=== PATIENT | male | born 1945 | race African-American/Black ===

== ENCOUNTER 2019-06-03 05:52 | Inpatient (IN) | payer OTHER ==
[2019-06-03] MEDS ORDERED: niCARdipine 20MG In NaCl 20 MG/200 ML BAG ONE (06:10)
[2019-06-03 06:24] LABS: #Eosinphils 0.2 thou/uL (0.0-0.7); #Monocytes 0.6 thou/uL (0.11-0.59); %Basophils 0.4 % (0.0-1.0); %Eosinophils 4.3 % (0.0-10.0); %Lymphocytes 41.3 % (21.0-51.0); %Monocytes 11.8 % (0.0-10.0); %Neutrophils 42.2 % (42.0-75.0); Mean Corpuscular HGB CONC 34.1 g/dL (32.0-36.0); Mean Corpuscular Hemoglobin 32.7 pg (27.0-31.0); Mean Corpuscular Volume 95.9 fL (78.0-98.0); Mean Platelet Volume 7.7 fL (7.4-10.4); Platelet Count 154 thou/uL (130-400); RBC Distribution Width 12.2 % (11.5-14.5); Red Blood Cell (RBC) Count 3.98 mill/uL (4.70-6.10); White Blood Cell (WBC) Count 4.7 thou/uL (4.8-10.8)
[2019-06-03 06:30] LABS: PTT 23.4 SEC (22.9-36.1); Prothrombin Time 12.7 SEC (12.0-14.7)
[2019-06-03 06:39] LABS: ALT (SGPT) 42 U/L (8-55); AST (SGOT) 27 U/L (5-34); Acetaminophen Less than 6.0 mcg/mL (10.0-30.0); Albumin 3.2 g/dL (3.4-4.8); Alcohol Less than 10 mg/dL (Less than 10); Alkaline Phosphatase 72 U/L (40-110); Anion Gap 12 mmol/L (10-20); BUN (Urea Nitrogen) 32 mg/dL (8.4-25.7); Bilirubin, Total 0.4 mg/dL (0.2-1.2); Calc. Creatinine Clearance 0 mL/min (70-130); Calcium 8.7 mg/dL (7.8-10.44); Carbon Dioxide 25 mmol/L (23-31); Chloride 104 mmol/L (98-107); Estimated GFR-MDRD 54; Globulin 3.3 g/dL (2.4-3.5); Glucose 271 mg/dL (83-110); Protein, Total 6.5 g/dL (5.8-8.1); Salicylate Less than 8.0 mg/dL (15.0-30.0); Sodium 137 mmol/L (136-145)
[2019-06-03] MEDS ORDERED: Morphine 2 MG/ML SYRINGE ONE (06:48)
[2019-06-03] MEDS ORDERED: Aspirin Chewable 81 MG TAB ONE ×2 (07:09)
[2019-06-03 07:39] LABS: Bilirubin Negative (Negative); Blood, Urine Negative (Negative); Clarity Clear (Clear); Glucose, Urine (Dipstick) 500 mg/dL (Negative); Leukocyte Negative Leu/uL (Negative); Nitrite Negative (Negative); Protein, Urine (Dipstick) Negative (Neg-Trace); Urobilinogen Normal mg/dL (Less than 2)
--- NOTE | 2019-06-03 07:39 | CT ---
PRELIMINARY REPORT/[facility]/EMERGENCY AFTER HOURS PROCEDURE Addendum created by Chico Langley MD on 06/03/2019 6:30 AM Central Time ([place] & [place]) The findings were verbally communicated via telephone conference with VAZQUEZ GRAHAM at 6:20 AM CDT on 06/03/2019. Initial Report created on 06/03/2019 6:13 AM Central Time ([place] & [place]) PROCEDURE INFORMATION: Exam: CT Head Without Contrast Exam date and time: 06/03/2019 5:56 AM Clinical history: 73 years old, male; Weakness, extremity and weakness, facial; Patient HX: Slurred speech, left sided facial droop, left sided extremity weakness TECHNIQUE: Imaging protocol: Computed tomography of the head without contrast. Other technique: STROKE PROTOCOL was implemented. COMPARISON: No relevant prior studies available. FINDINGS: Brain: Mild periventricular and deep white matter hypodensities compatible with chronic microvascular ischemic change. No hemorrhage. Ventricles: Unremarkable. Bones/joints: No acute fracture. Sinuses: Unremarkable. Mastoid air cells: Unremarkable. Soft tissues: Unremarkable. IMPRESSION: No evidence of acute intracranial abnormality. ASSESSMENT: ASPECTS ([place] Stroke Program Early CT Score) is 10. Thank you for allowing us to participate in the care of your patient. Dictated and Authenticated by: Chico Langley MD 06/03/2019 6:13 AM Central Time ([place] & [place]) FINAL REPORT CT BRAIN WITHOUT CONTRAST: I agree with the preliminary report given by Dr. Chico Langley of [facility]. Transcribed Date/Time: 06/03/2019 7:43 AM
--- NOTE | 2019-06-03 07:40 | RAD ---
EXAM: Single view of the chest HISTORY: Strokelike symptoms COMPARISON: None FINDINGS: Single view of the chest shows a normal sized cardiomediastinal silhouette. There is no ronnie dence of consolidation, mass, or pleural effusion. The bones are unremarkable. IMPRESSION: No evidence of acute cardiopulmonary disease
[2019-06-03 07:49] LABS: Amphetamine Not Detected (NotDetected); Cocaine Metabolite Screen Not Detected (NotDetected); Medtox Reader # READER 4; Methamphetamine Not Detected (NotDetected); Opiate Screen Detected (NotDetected); Phencyclidine (PCP) Not Detected (NotDetected); THC/Cannabinoid Screen Not Detected (NotDetected)
[2019-06-03 07:50] LABS: Barbiturates Screen Not Detected (NotDetected); Benzodiazepine Screen Not Detected (NotDetected); Medtox Control Line Valid? VALID (VALID); Methadone Not Detected (NotDetected); Oxycodone Screen Not Detected (NotDetected); Tricyclic Screen Not Detected (NotDetected)
--- NOTE | 2019-06-03 07:50 | CT ---
PRELIMINARY REPORT/[facility]/EMERGENCY AFTER HOURS PROCEDURE PROCEDURE INFORMATION: Exam: CT Angiography Chest With Contrast Exam date and time: 06/03/2019 6:26 AM Clinical history: 73 years old, male; Other: Severe chest pain; Shortness of breath; Additional info: Additional history obtained from EMS, 73 y/o m presents to ED via EMS transport from the [facility] unit for stroke-like symptoms. PT was last seen [facility] at 0415 today, with unit staff reporting onset now of slurred speech, facial droop, L sided weakness. PT BP is 237/118 and abn cxr. PT recieved a dose of contrast prior to scan for a cta br and neck stroke protocol. PT is being admitted and is given fluids. TECHNIQUE: Imaging protocol: Computed tomographic angiography of the chest with intravenous contrast. 3D rendering: MIP reconstructed images were created and reviewed. Contrast material: ISVOUE 370; Contrast volume: 95 ml; Contrast route: IV; COMPARISON: No relevant prior studies available. FINDINGS: Pulmonary arteries: Some motion and limited opacification. No pulmonary embolus identified in the main or lobar branches or proximal segmental branches which can be evaluated. Aorta: No aortic aneurysm. No aortic dissection. Lungs: Mild bibasal subsegmental atelectasis and dependent groundglass attenuation. No consolidation. No mass. Pleural space: No pneumothorax. No pleural effusion. Heart: Coronary calcifications. No significant pericardial effusion. Lymph nodes: Unremarkable. No enlarged lymph nodes. Bones/joints: Unremarkable. No acute fracture. Soft tissues: Unremarkable. IMPRESSION: 1. No acute vascular findings. 2. Mild bibasal subsegmental atelectasis and dependent groundglass attenuation compatible with passive atelectasis. PROCEDURE INFORMATION: Exam: CT Angiography Abdomen With Contrast Exam date and time: 06/03/2019 6:26 AM Clinical history: 73 years old, male; Other: Severe chest pain; Shortness of breath; Additional info: Additional history obtained from EMS, 73 y/o m presents to ED via EMS transport from the [facility] unit for stroke-like symptoms. PT was last seen [facility] at 0415 today, with unit staff reporting onset now of slurred speech, facial droop, L sided weakness. PT BP is 237/118 and abn cxr. PT recieved a dose of contrast prior to scan for a cta br and neck stroke protocol. PT is being admitted and is given fluids. TECHNIQUE: Imaging protocol: Computed tomographic angiography images of the abdomen with intravenous contrast material. 3D rendering: MIP reconstructed images were created and reviewed. Contrast material: ISVOUE 370; Contrast volume: 95 ml; Contrast route: IV; COMPARISON: No relevant prior studies available. FINDINGS: VASCULATURE: Aorta: No aortic aneurysm. No aortic dissection. Celiac trunk and mesenteric arteries: Atherosclerotic plaque along the mid SMA proximal POPPY with mild stenosis. Renal arteries: No occlusion or significant stenosis. ABDOMEN: Liver: Normal. No mass. Gallbladder and bile ducts: Normal. No calcified stones. No ductal dilation. Pancreas: Normal. No ductal dilation. Spleen: Normal. No splenomegaly. Adrenals: Normal. No mass. Kidneys and ureters: 6.3 cm left renal cyst and couple small low attenuation renal lesions bilaterall y. Excreted contrast in the kidneys and ureters. Symmetric nephrograms. No hydronephrosis. Stomach and bowel: Mild apparent gastric wall thickening versus partial distention. Otherwise unremarkable. No obstruction. Intraperitoneal space: Unremarkable. No free air. No significant fluid collection. Bones/joints: Unremarkable. No acute fracture. No dislocation. Soft tissues: Unremarkable. Lymph nodes: Subcentimeter fabián hepatic lymph nodes. IMPRESSION: 1. No definite acute findings. 2. Mild apparent gastric wall thickening versus partial distention. Thank you for allowing us to participate in the care of your patient. Dictated and Authenticated by: Chico Langley MD 06/03/2019 6:59 AM Central Time ([place] & [place]) FINAL REPORT CTA CHEST WITH IV CONTRAST AND 3D POSTPROCESSING CTA ABDOMEN WITH IV CONTRAST AND 3D POSTPROCESSING: I agree with the preliminary report given by [facility]. Transcribed Date/Time: 06/03/2019 7:54 AM
--- NOTE | 2019-06-03 07:51 | PDOC.FPRHP ---
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 Neurological deficits began yesterday afternoon/evening. He noticed mostly dysarthria yesterday. He decided to sleep it off but woke this morning without alleviation of symptoms and L sided weakness. He state at this time others became concerned with his condition so he came to the emergency department. He states he has never had any symptoms like this. While in the emergency department he began experiencing sternal, sharp chest pain that was non- radiating. His chest pain was not alleviated while he was at rest. Of note he did have a fall yesterday. He went to [facility] who discharged him home. We do not have records. He states symptoms became worse after discharge. In the ED he was noted to have BP's 240's/130's and started on a cardizem drip. He was noted to have a NIH of 18 but this was due to his inability to perform testing as he is blind per ED. Trop neg x 1. CT Head negative, CT aortic dissection negative, CTA Head/Neck revealed mild R proximal ICA stenosis. - Allergies/Adverse Reactions Allergies Allergy/AdvReac Type Severity Reaction Status Date / Time Penicillins Allergy Verified 06/03/19 09:21 - Home Medications Medication Instructions Recorded Confirmed Type Amlodipine [Norvasc] 10 mg PO DAILY 06/03/19 06/03/19 History Aspirin [Ecotrin Low Strength] 81 mg PO DAILY 06/03/19 06/03/19 History Atorvastatin Calcium 20 mg PO HS 06/03/19 06/03/19 History Hydrochlorothiazide 25 mg PO DAILY 06/03/19 06/03/19 History Lisinopril 20 mg PO DAILY 06/03/19 06/03/19 History Minoxidil 7.5 mg PO HS 06/03/19 06/03/19 History Timolol Maleate [Timolol Maleate 1 drop EA EYE BID 06/03/19 06/03/19 History 0.5% Ophth SolN] metFORMIN HCl [Metformin HCl] 1 g PO BID 06/03/19 06/03/19 History - History PMHx: HTN, DMII, Hep C, CAD, Visual Impairment PSHx: cath w/ stents 2013 FHx: Mother with CAD Social: Snf, denies current smoking, alcohol, drugs - Review of Systems General: denies: fever/chills, weight/appetite/sleep changes Eyes: denies: eye pain, vision changes ENT: denies: nasal congestion, rhinorrhea Respiratory: denies: cough, congestion Cardiovascular: reports: chest pain. denies: palpitation, edema Gastrointestinal: denies: nausea, vomiting, diarrhea, constipation Skin: denies: rashes, lesions Musculoskeletal: denies: pain, tenderness Neurological: reports: numbness, weakness. denies: syncope, seizure - Vital signs BP: [212/95] HR: [95] RR: [20] Tmax: [98.8] Pox: [96]% on [RA] Wt: [92.6 kg] - Physical Exam Constitutional: NAD, awake, alert and oriented HEENT: EOMI -HEENT: Blind Neck: FROM, trachea midline Heart: RRR, normal S1/S2, pulses present Lungs: CTAB, no respiratory distress, good air movement, no wheezing -Neurological: CN III-XII intact except VII - lower facial droop, II not intact, 4-/5 strength left extremities, 4+/5 strength R extremities, tingling sensation in L extremities but sensation intact Heme/Lymphatic: no purpura, no petechia Psychiatric: good judgment and insight FMR H&P: Results - Labs Result Diagrams: 06/03/19 06:15 06/03/19 06:15 Lab results: WBC 4.7 thou/uL (4.8-10.8) L 06/03/19 06:15 Hgb 13.0 g/dL (14.0-18.0) L 06/03/19 06:15 Hct 38.1 % (42.0-52.0) L 06/03/19 06:15 MCV 95.9 fL (78.0-98.0) 06/03/19 06:15 Plt Count 154 thou/uL (130-400) 06/03/19 06:15 Neutrophils % 42.2 % (42.0-75.0) 06/03/19 06:15 Sodium 137 mmol/L (136-145) 06/03/19 06:15 Potassium 4.0 mmol/L (3.5-5.1) 06/03/19 06:15 Chloride 104 mmol/L (98-107) 06/03/19 06:15 Carbon Dioxide 25 mmol/L (23-31) 06/03/19 06:15 BUN 32 mg/dL (8.4-25.7) H 06/03/19 06:15 Creatinine 1.53 mg/dL (0.7-1.3) H 06/03/19 06:15 Glucose 271 mg/dL (83-110) H 06/03/19 06:15 Lactic Acid 2.9 mmol/L (0.5-2.2) H 06/03/19 06:14 Calcium 8.7 mg/dL (7.8-10.44) 06/03/19 06:15 Total Bilirubin 0.4 mg/dL (0.2-1.2) 06/03/19 06:15 AST 27 U/L (5-34) 06/03/19 06:15 ALT 42 U/L (8-55) 06/03/19 06:15 Alkaline Phosphatase 72 U/L (40-110) 06/03/19 06:15 Creatine Kinase 142 U/L (30-200) 06/03/19 06:15 Serum Total Protein 6.5 g/dL (5.8-8.1) 06/03/19 06:15 Albumin 3.2 g/dL (3.4-4.8) L 06/03/19 06:15 - EKG Interpretation EKG: Initial EKG reveal T Wave Inversion in the Lateral Leads Second EKG revealed resolution of T Wave Inversions FMR H&P: A/P - Problem List (1) Stroke Current Visit: Yes Status: Acute Code(s): I63.9 - CEREBRAL INFARCTION, UNSPECIFIED (2) Weakness Current Visit: Yes Status: Acute Code(s): R53.1 - WEAKNESS (3) Hypertension Current Visit: Yes Status: Acute Code(s): I10 - ESSENTIAL (PRIMARY) HYPERTENSION (4) Diabetes Current Visit: Yes Status: Acute Code(s): E11.9 - TYPE 2 DIABETES MELLITUS WITHOUT COMPLICATIONS (5) CAD (coronary artery disease) Current Visit: Yes Status: Acute Code(s): I25.10 - ATHSCL HEART DISEASE OF [place] CORONARY ARTERY W/O ANG PCTRS - Plan Mr Cervantes is a 73 yo male who presents with L sided extremitiy weakness, R sided facial droop, and chest pain. # L sided weakness # R sided facial droop New onset. Out of TPA window. CT head negative. CTA head/neck revealed mild R ICA stenosis. CT Dissection negative. Trop x 1 neg. NIH 6. 4-/5 strength on L , 4+/5 on right. - MRI pending - trend trops - start asp - start atorvastatin - Permissive HTN - Start metoprolol; labetolol for BP > 220/110 - Consult PT/OT/Speech - Echo pending # Atypical Chest Pain MSK vs Stable Angina vs Unstable Angina Initial EKG revealed T wave inversions in lateral leads which resolved on secondary Pain not remitting with rest. Sharp, sternal in nature, no radiation - Trend tops - Stress test tomorrow - Consult cards if trops elevate, start heparin # DM - sliding scale # HTN - permissive htn, start metoprolol now # Hx CAD - as above # Inmate - will need follow up in [place] [facility] Fluids: none Diet: Heart Healthy, NPO midnight VTE prophylaxis: lovenox Code: Full Dispo: Pt will likely need > 2 midnight stays for new onset deficits, chest pain. FMR H&P: Upper Level - Plan Date/Time: 06/03/19 0750 PCP: JE[facility] HPI: This is a 73 yo gentleman coming in from [facility] with chief complaint of stroke like symptoms as well as chest pain. PMH includes CAD, Hep C, DMII, HTN. He went to an outside ED yesterday after a fall and was sent home stating that his exam was benign. He states last night when he was going to bed he started to notice weakness affecting his face and thought if he went to sleep it would resolve. When he awoke at 0400 he talked to a guard who noticed facial droop and brought him in. The patient also states that he has chest pain in the center of his chest which does not radiate and is not affected by activity. He denies fevers, chills, sweats, N/V/D. On arrival to the ED his blood pressures was in the 240s/120s and he was started on a cardene drip, this did not affect his chest pain. The patients neuro exam was variable during his ED stay, nurses state at time he would not raise up his arms and then other times he would use them fine to use the urinal or roll on the bed. PHYSICAL EXAMINATION: General: NAD, alert and oriented x3 HEENT: PERRLA, EOMI, normal sclera, oropharynx without erythema or exudate Neck: Supple. Full ROM. Heart/Cardiovascular System: RRR, Cap refill < 3 seconds, no rub, no murmur, tender to palpation of the chest Lungs/Respiratory System: clear to auscultation bilaterally. No increased work of breathing. Room air. Abdomen/Gastro-Intestinal System: no abdominal tenderness, normal bowel sounds, no masses, no organomegaly Extremities: Warm extremities. No cyanosis or edema. Neuro: Right sided lower facial droop noted on smile, no dysarthria, bilateral upper extremities drift to the bed but can be raised up, no drift noted on legs , 4/5 weakness throughout during exam, nurses state was stronger at times, chronic visual impairment Psychiatry: Awake, Alert and cooperative with exam Skin: No lesions, rashes, or ulcers Musculoskeletal: Full ROM A/P: # Left acute CVA - Confirmed on MRI - CTA head/neck show mild right ICA stenosis but no acute finding - NIH: 6 - Asa, statin, echo - Stroke team consulted- PT/OT/Rehab - Permissive HTN x24 hours - Neurology consulted, appreciate recs # Chest pain likely 2/2 costochondritis - T inv noted on EKG, trop negative x1, will trend # HTN - Restart home meds tomorrow # DMII - Sliding scale Fluids: tko Code status: full PPx: scd, lovenox Dispo: inpt
--- NOTE | 2019-06-03 08:00 | CT ---
PRELIMINARY REPORT/[facility]/EMERGENCY AFTER HOURS PROCEDURE: Addendum created by Chico Langley MD on 06/03/2019 6:30 AM Central Time ([place] & [place]) The findings we re verbally communicated via telephone conference with VAZQUEZ GRAHAM at 6:20 AM CDT on 06/03/2019. Initial Report created on 06/03/2019 6:29 AM Central Time ([place] & [place]) PROCEDURE INFORMATION: Exam: CT Angiography Head With Contrast Exam date and time: 06/03/2019 5:59 AM Clinical history: 73 years old, male; Patient HX: Slurred speech, left sided facial droop, left sided extremity weakness TECHNIQUE: Imaging protocol: Computed tomography angiography of the head with intravenous contrast. 3D rendering: MIP reconstructed images were created and reviewed. COMPARISON: No relevant prior studies available. FINDINGS: Right internal carotid artery: Unremarkable. Intracranial segment is patent with no significant steno sis. No aneurysm. Right anterior cerebral artery: Unremarkable. No occlusion or significant stenosis. No aneurysm. Right middle cerebral artery: Unremarkable. No occlusion or significant stenosis. No aneurysm. Right posterior cerebral artery: Unremarkable. No occlusion or significant stenosis. No aneurysm. Right vertebral artery: Unremarkable. No occlusion or significant stenosis. No aneurysm. Left internal carotid artery: Unremarkable. Intracranial segment is patent with no significant stenos is. No aneurysm. Left anterior cerebral artery: Unremarkable. No occlusion or significant stenosis. No aneurysm. Left middle cerebral artery: Unremarkable. No occlusion or significant stenosis. No aneurysm. Left posterior cerebral artery: Unremarkable. No occlusion or significant stenosis. No aneurysm. Left vertebral artery: Unremarkable. No occlusion or significant stenosis. No aneurysm. Basilar artery: Unremarkable. No occlusion or significant stenosis. No aneurysm. IMPRESSION: No acute findings. PROCEDURE INFORMATION: Exam: CT Angiography Neck With Contrast Exam date and time: 06/03/2019 5:59 AM Clinical history: 73 years old, male; Patient HX: Slurred speech, left sided facial droop, left sided extremity weakness TECHNIQUE: Imaging protocol: Computed tomography angiography of the neck with intravenous contrast. COMPARISON: No relevant prior studies available. FINDINGS: VASCULATURE: Right common carotid artery: No significant stenosis. No dissection or occlusion. Right internal carotid artery: Mild proximal right ICA atherosclerotic plaque with mild significant stenosis. Right external carotid artery: No occlusion or significant stenosis. Right vertebral artery: No significant stenosis. No dissection or occlusion. Left common carotid artery: No significant stenosis. No dissection or occlusion. Left internal carotid artery: Mildly angulated proximal left ICA course. Mild left carotid bulb/proxi mal ICA atherosclerotic plaque with mild to moderate stenosis. Left external carotid artery: No occlusion or significant stenosis. Left vertebral artery: No significant stenosis. No dissection or occlusion. NECK: Bones/joints: No acute fracture. Soft tissues: Unremarkable. IMPRESSION: No acute findings. COMMENT: Reference per NASCET criteria for degree of stenosis: Mild: less than 50% stenosis. Moderate: 50-69% stenosis. Severe: 70-94% stenosis. Near occlusion: 95-99% stenosis. Thank you for allowing us to participate in the care of your patient. Dictated and Authenticated by: Chico Langley MD 06/03/2019 6:29 AM Central Time ([place] & [place]) FINAL REPORT CTA NECK AND CTA HEAD: The intracranial cerebral arteries show atherosclerotic changes in the cavernous ICAs. No evidence of proximal stenosis or occlusion. The extracranial carotid arteries appear patent without evidence of significant stenosis. I am in agreement with the preliminary report issued by [facility]. POS: OFF
[2019-06-03] MEDS ORDERED: Labetalol HCl 100 MG/20 ML VIAL SLOW IVP PRN (09:01)
[2019-06-03] MEDS ORDERED: Acetaminophen 325 MG TAB PO PRN (09:01)
[2019-06-03] MEDS ORDERED: Amlodipine 10 MG TAB PO SCH (09:01)
--- NOTE | 2019-06-03 09:57 | MRI ---
MRI BRAIN WITHOUT CONTRAST: HISTORY: Slurred speech, left-sided facial droop, left-sided weakness CORRELATION: CT scan from 06/03/2019. FINDINGS: There is a small focus of restricted diffusion in the left thalamus. A couple of small foci of restri cted diffusion are also seen in the left centrum semiovale. There are multiple foci of T2 prolongation in the periventricular white matter, consistent with chrome plater rohan small vessel ischemic disease. The ventricular size is appropriate and the basilar cisterns are patent. No evidence of transcortical infarct, hemorrhage, midline shift or abnormal extra-axial fluid collect ions is seen. The visualized paranasal sinuses and mastoid air cells are well-aerated. IMPRESSION: Acute lacunar infarctions in the left cerebral hemisphere (thalamus and centrum semiovale ).
[2019-06-03 10:37] LABS: Lactic Acid 2.6 mmol/L (0.5-2.2)
[2019-06-03] MEDS ORDERED: Ibuprofen 600 MG TAB PO PRN (10:53)
[2019-06-03] MEDS ORDERED: Iopamidol 370 76% 100 ML VIAL ONE ×2 (11:29)
[2019-06-03 12:28] LABS: Troponin I 0.019 ng/mL (< 0.028)
--- NOTE | 2019-06-03 12:31 | HP ---
I have examined the patient. I have discussed the case with Dr. Wes Charles and agree with his assessment and plan. HISTORY OF PRESENT ILLNESS: Briefly, Mr. Cervantes is a 73-year-old black male inmate, who presented initially yesterday to [facility] with symptoms suggestive of possible TIA/stroke. He had a negative CT at that institution and was returned to the [facility]. He continued to complain of some slurred speech and left-sided weakness and came into our ER earlier this morning for further evaluation. When I examined the patient, he was awake, alert, with stable vital signs. He complained of slurred speech and left-sided weakness. PHYSICAL EXAMINATION: GENERAL: As stated above, he is awake and alert. VITAL SIGNS: His blood pressure was 220/110. His pulse rate was 86 and regular, respirations 12. Afebrile. EAR, NOSE, AND THROAT: No erythema or exudate. He did appear to have possibly a left-sided facial droop and slurred his speech somewhat. He says this was a distinct change for him from day before yesterday. NECK: Supple. I heard no bruits. CARDIAC: Heart rhythm was regular, S4 gallop. No murmur or rub noted. LUNGS: Clear, but diminished. No rales or wheezes. No respiratory distress. ABDOMEN: Flat, soft. No guarding, rebound, or rigidity. EXTREMITIES: No edema. NEUROLOGICAL: He did appear to have some weakness in his left lower extremity compared to the right. His left arm strength compared favorably with his right arm strength. He was muffling or slurring his speech. LABORATORY DATA: His CBC shows a white count of 4700, hemoglobin was 13, hematocrit 38.1. Chemistries; sodium was 137, potassium was 4.0, chloride was 101, bicarb was 25, BUN was 32, creatinine was 1.53, and his glucose was elevated at 271. Lactic acid was slightly elevated at 3.9. ASSESSMENT: Transient ischemic attack versus stroke versus malingering. PLAN: We will allow permissive hypertension. He has already been scheduled for a CTA of the head and neck, which I am told are normal. We will also get an MRI and echo to complete his workup. We reinstituted treatment with atorvastatin and blood pressure control. We will later add aspirin if his MRI shows no evidence of bleed. We will need to consult PT, OT possibly as well. Job ID: [id number]
[2019-06-03 14:13] VITALS: BMI 29.9
[2019-06-03] MEDS: metFORMIN 500 MG TAB PO SCH (16:06)
[2019-06-03] MEDS ORDERED: Metoprolol Tartrate 25 MG TAB PO SCH (21:00)
[2019-06-03] MEDS ORDERED: METFORMIN HCL PO SCH (21:00)
[2019-06-03] MEDS: Timolol 0.5% Ophth Soln 5 ml Bottle EA EYE SCH (21:15)
[2019-06-03] MEDS: Atorvastatin Calcium 40 MG TAB PO SCH (21:15)
[2019-06-03] MEDS ORDERED: Dextrose 5% in Water 1,000 ML IV PRN (22:30)
[2019-06-03] MEDS ORDERED: Dextrose 50% Abboject 50 ML SYRINGE IVP PRN (22:30)
--- NOTE | 2019-06-03 23:16 | CON ---
DATE OF CONSULTATION: 06/03/2019 CONSULTING PHYSICIAN: Hospitalist Service. IMPRESSION: 1. Left thalamic stroke. 2. Hypertension. 3. Diabetes. 4. Aspirin failure. PLAN: 1. Add Plavix 75 mg per day. 2. Transfer to a rehab facility. HISTORY OF PRESENT ILLNESS: Mr. Cervantes is a 73-year-old man who is currently an [facility]. He developed symptoms of right-sided weakness and was brought to the hospital. Initial CT of the brain was unremarkable. Followup MRI showed a left thalamic infarct that was acute. His CT angiogram does not show any large vessel stenosis. He had an echocardiogram performed, but the results are pending. He has not been out of the bed yet. PAST MEDICAL HISTORY: As listed above. ALLERGIES: PENICILLIN. SOCIAL HISTORY: He is currently an inmate. No alcohol use. No illicit drug use. MEDICATIONS: Reviewed. REVIEW OF SYSTEMS: Ten-system review of systems is otherwise negative. PHYSICAL EXAMINATION: VITAL SIGNS: Blood pressure 157/75, pulse 84, respirations 16, and temperature 98.9. HEENT: Pupils are equal. Conjunctivae are clear. Oropharynx is clear. NECK: Supple. No lymphadenopathy. EXTREMITIES: No cyanosis or edema. NEUROLOGIC: He is awake and cooperative. He appears to have some facial droop on the right. He made very limited efforts to raise his arm on the right side. He reports some diminished sensation to touch in the right arm, but not in the face. He could elevate the right leg against gravity. No abnormal movements are seen. DIAGNOSTIC DATA: EKG shows sinus rhythm. LABORATORY DATA: Laboratory studies were reviewed. SUMMARY: This is a 73-year-old gentleman with moderately extensive small vessel disease with a secondary lacunar infarct in the thalamus. His prognosis is good for functional recovery. He seems to be embellishing his exam as well. I agree with his current treatment plan, but would add Plavix since he was previously taking aspirin. Job ID: [id number]
[2019-06-04 05:17] LABS: #Basophils 0.1 thou/uL (0.0-0.2); #Eosinphils 0.3 thou/uL (0.0-0.7); #Lymphocytes 2.4 thou/uL (1.20-3.40); #Monocytes 0.6 thou/uL (0.11-0.59); #Neutrophils 1.7 thou/uL (1.40-6.50); %Basophils 1.4 % (0.0-1.0); %Eosinophils 5.9 % (0.0-10.0); %Lymphocytes 47.8 % (21.0-51.0); %Monocytes 11.6 % (0.0-10.0); %Neutrophils 33.3 % (42.0-75.0); Hemoglobin 12.8 g/dL (14.0-18.0); Mean Corpuscular HGB CONC 34.4 g/dL (32.0-36.0); Mean Corpuscular Hemoglobin 32.7 pg (27.0-31.0); Mean Corpuscular Volume 95.2 fL (78.0-98.0); Mean Platelet Volume 8.3 fL (7.4-10.4); Platelet Count 166 thou/uL (130-400); RBC Distribution Width 12.2 % (11.5-14.5); Red Blood Cell (RBC) Count 3.91 mill/uL (4.70-6.10)
[2019-06-04 05:25] LABS: Anion Gap 9 mmol/L (10-20); BUN (Urea Nitrogen) 22 mg/dL (8.4-25.7); Calc. Creatinine Clearance 68 mL/min (70-130); Calcium 8.7 mg/dL (7.8-10.44); Carbon Dioxide 27 mmol/L (23-31); Cardiac Risk 4.2 (Less than 4.5); Chloride 107 mmol/L (98-107); Cholesterol 172 mg/dl (< 200 Desired); Estimated GFR-MDRD 67; Glucose 180 mg/dL (83-110); HDL Cholesterol 41 mg/dL (>60 Neg Risk); LDL Cholesterol, Calculated 112 mg/dL; Potassium 3.8 mmol/L (3.5-5.1); Sodium 139 mmol/L (136-145); Triglycerides 94 mg/dL (Less than 150)
--- NOTE | 2019-06-04 06:14 | PDOC.FM ---
- Subjective Subjective: Pt remains with same complaints as yesterday. He has generalized weakness. He remains with chest pain. Guards note he is able to move extremities with ease compared to effort on my exam. - Objective Vital Signs & Weight: Vital Signs (12 hours) Temp Pulse Resp BP BP Pulse Ox 06/04/19 04:00 97.9 F 77 18 169/81 H 93 L 06/03/19 23:22 98.1 F 77 18 156/71 H 96 06/03/19 21:15 88 153/71 H 06/03/19 20:00 92 L 06/03/19 19:41 98.4 F 88 18 153/71 H 92 L Weight Admit Weight 91.989 kg Weight 91.989 kg Result Diagrams: 06/04/19 04:41 06/04/19 04:41 Phys Exam - Physical Examination Constitutional: NAD Respiratory: no wheezing, no rales, no rhonchi, clear to auscultation bilateral Cardiovascular: RRR, no significant murmur Gastrointestinal: soft, non-tender, no distention Musculoskeletal: no edema, pulses present Neurological: moves all 4 limbs Right side facial droop, 4-/5 strength LLE, 4+/5 strength RLE Dx/Plan (1) Stroke Code(s): I63.9 - CEREBRAL INFARCTION, UNSPECIFIED Status: Acute (2) Weakness Code(s): R53.1 - WEAKNESS Status: Acute (3) Hypertension Code(s): I10 - ESSENTIAL (PRIMARY) HYPERTENSION Status: Acute (4) Diabetes Code(s): E11.9 - TYPE 2 DIABETES MELLITUS WITHOUT COMPLICATIONS Status: Acute (5) CAD (coronary artery disease) Code(s): I25.10 - ATHSCL HEART DISEASE OF [place] CORONARY ARTERY W/O ANG PCTRS Status: Acute - Plan Plan: Mr Cervantes is a 73 yo male who presents with L sided extremitiy weakness, R sided facial droop, and chest pain. # L sided weakness # R sided facial droop # Acute Stroke New onset. Out of TPA window. CT head negative. CTA head/neck revealed mild R ICA stenosis. CT Dissection negative. MRI revealed acute infarction. Trop x 1 neg. NIH 6. 4-/5 strength on L, 4+/5 on right. - start asp, clopidegril - start atorvastatin - Start metoprolol after stress test, lisinopril for cardiac and renal benefits ; continue other home bp meds, labetolol for BP > 220/110 - Consult PT/OT/Speech; appreciate rec's - Consult Neurology; appreciate rec's - Echo pending - Speech cleared reg diet. # Atypical Chest Pain MSK vs Stable Angina vs Unstable Angina Initial EKG revealed T wave inversions in lateral leads which resolved on secondary Pain not remitting with rest. Sharp, sternal in nature, no radiation. Trops negative. - Stress test today # DM - continued metformin, started lisinopril # HTN - metoprolol, lisinopril. Titrate lisinopril, metoprolol as much as kidneys and rate can handle to optimize control. - hold metoprolol this am for stress test. # Hx CAD - as above # Inmate - will need follow up in [facility] Fluids: none Diet: Heart Healthy, NPO midnight VTE prophylaxis: lovenox Code: Full Dispo: Pt will likely need > 2 midnight stays for new onset deficits, chest pain.
[2019-06-04] MEDS ORDERED: Lisinopril 10 MG TAB PO SCH (06:15)
[2019-06-04] MEDS ORDERED: Aspirin 81 mg Enteric Coated Tablet PO SCH (09:00)
[2019-06-04 09:04] LABS: Lactic Acid 2.2 mmol/L (0.5-2.2)
[2019-06-04] MEDS: metFORMIN 500 MG TAB PO SCH ×2 (09:36→17:21)
[2019-06-04] MEDS: Clopidogrel Bisulfate 75 MG TAB PO SCH (09:37)
[2019-06-04] MEDS: Timolol 0.5% Ophth Soln 5 ml Bottle EA EYE SCH ×2 (09:37→21:18)
--- NOTE | 2019-06-04 12:11 | PRG ---
DATE OF SERVICE: 06/04/2019 Mr. Cervantes has been seen by Dr. Patel, who agrees with our assessment and plan. He is already on aspirin and statin and Dr. Patel has suggested that we add Plavix. Given that Mr. Cervantes likely has significant ASCVD and given the fact that he had some ischemic changes on his initial admission EKG, we are proceeding with a stress Myoview. Further workup to depend on this. We have started OT and PT. We are gradually bringing his blood pressure under control. Job ID: [id number]
[2019-06-04] MEDS ORDERED: FLU VACC TS2019-20(65YR UP)/PF 180 MCG/0.5 ML SYRINGE IM ONE (16:00)
--- NOTE | 2019-06-04 17:14 | NM ---
NUCLEAR MEDICINE CARDIAC MYOCARDIAL PERFUSION SPECT EJECTION FRACTION STUDY WALL MOTION CINE: DATE: 06/04/2019 HISTORY: 73-year-old male with coronary artery disease, hypertension, and diabetes mellitus presents with acut e chest pain. TECHNIQUE: Number of days: 1 Rest study: Technetium 99m-sestamibi (Cardiolite) dose: 9.0 mCi Pharmacologic stress: Adenosine dose: 51.5 mg Stress study: Technetium 99m-sestamibi (Cardiolite) dose: 32.6 mCi FINDINGS: CARDIAC (MYOCARDIAL PERFUSION) SPECT There are no reversible myocardial perfusion defects. EJECTION FRACTION STUDY Left ventricular EF = 41 % WALL MOTION CINE No focal wall motion abnormality. IMPRESSION: 1. No evidence of reversible ischemia. 2. Decreased left ventricular ejection fraction of 41%.
[2019-06-04] MEDS: Insulin Regular 300 UNITS/3 ML VIAL SC PRN (17:22)
[2019-06-04] MEDS ORDERED: Amlodipine 10 MG TAB PO SCH (17:30)
[2019-06-04] MEDS ORDERED: Labetalol HCl 100 MG/20 ML VIAL SLOW IVP PRN (17:49)
[2019-06-04] MEDS ORDERED: ADENOSINE 60 MG/20 ML VIAL ONE (19:55)
[2019-06-04] MEDS: Atorvastatin Calcium 40 MG TAB PO SCH (21:18)
[2019-06-04] MEDS: Metoprolol Tartrate 25 MG TAB PO SCH (21:18)
[2019-06-04] MEDS ORDERED: Dextrose 5% in Water 1,000 ML IV PRN (22:47)
[2019-06-04] MEDS: HumaLOG 300 UNITS/3 ML VIAL SC PRN (23:08)
[2019-06-05 05:31] LABS: #Basophils 0.1 thou/uL (0.0-0.2); #Eosinphils 0.3 thou/uL (0.0-0.7); #Lymphocytes 1.9 thou/uL (1.20-3.40); #Monocytes 0.7 thou/uL (0.11-0.59); #Neutrophils 2.2 thou/uL (1.40-6.50); %Eosinophils 6.6 % (0.0-10.0); %Monocytes 12.8 % (0.0-10.0); %Neutrophils 43.6 % (42.0-75.0); Hemoglobin 13.5 g/dL (14.0-18.0); Mean Corpuscular HGB CONC 34.5 g/dL (32.0-36.0); Mean Corpuscular Hemoglobin 32.4 pg (27.0-31.0); Mean Corpuscular Volume 94.1 fL (78.0-98.0); Mean Platelet Volume 8.1 fL (7.4-10.4); Platelet Count 181 thou/uL (130-400); Red Blood Cell (RBC) Count 4.16 mill/uL (4.70-6.10); White Blood Cell (WBC) Count 5.1 thou/uL (4.8-10.8)
[2019-06-05 05:54] LABS: Anion Gap 12 mmol/L (10-20); BUN (Urea Nitrogen) 11 mg/dL (8.4-25.7); Calc. Creatinine Clearance 76 mL/min (70-130); Calcium 8.9 mg/dL (7.8-10.44); Carbon Dioxide 24 mmol/L (23-31); Chloride 104 mmol/L (98-107); Estimated GFR-MDRD 76; Glucose 202 mg/dL (83-110); Potassium 4.3 mmol/L (3.5-5.1); Sodium 136 mmol/L (136-145)
--- NOTE | 2019-06-05 05:57 | PDOC.FM ---
- Subjective Subjective: Pt is fairly unchanged from yesterday. He continues with pleuritic chest pain, tender to palpation. He has ST wave depression on tele. - Objective Vital Signs & Weight: Vital Signs (12 hours) Temp Pulse Resp BP BP Pulse Ox 06/05/19 03:08 98.1 F 71 16 153/77 H 99 06/04/19 23:29 98.3 F 71 16 146/75 H 94 L 06/04/19 21:18 76 177/87 H 06/04/19 20:00 94 L 06/04/19 19:28 98.7 F 85 14 188/89 H 96 Weight Admit Weight 91.989 kg Weight 91.989 kg I&O: 06/03/19 06/04/19 06/05/19 06:59 06:59 06:59 Intake Total 240 Balance 240 Result Diagrams: 06/05/19 05:11 06/05/19 05:11 Phys Exam - Physical Examination Constitutional: NAD Respiratory: no wheezing, no rales, no rhonchi, clear to auscultation bilateral Cardiovascular: RRR, no significant murmur Gastrointestinal: soft, non-tender, no distention, positive bowel sounds Musculoskeletal: no edema, pulses present Neurological: normal sensation, moves all 4 limbs 4-/5 strenght LE, 4+/5 RE Dx/Plan (1) Stroke Code(s): I63.9 - CEREBRAL INFARCTION, UNSPECIFIED Status: Acute (2) Weakness Code(s): R53.1 - WEAKNESS Status: Acute (3) Hypertension Code(s): I10 - ESSENTIAL (PRIMARY) HYPERTENSION Status: Acute (4) Diabetes Code(s): E11.9 - TYPE 2 DIABETES MELLITUS WITHOUT COMPLICATIONS Status: Acute (5) CAD (coronary artery disease) Code(s): I25.10 - ATHSCL HEART DISEASE OF [place] CORONARY ARTERY W/O ANG PCTRS Status: Acute - Plan Plan: Mr Cervantes is a 73 yo male who presents with L sided extremitiy weakness, R sided facial droop, and chest pain. # L sided weakness # R sided facial droop # Acute Stroke New onset. Out of TPA window. CT head negative. CTA head/neck revealed mild R ICA stenosis. CT Dissection negative. MRI revealed acute infarction. Trop x 1 neg. NIH 6. 4-/5 strength on L, 4+/5 on right. - start asp, clopidegril - start atorvastatin - Consult PT/OT/Speech; appreciate rec's - Consult Neurology; appreciate rec's - Echo revealed 50-55% EF - Stress revealed no reversible ischemia or wall motion abnormalities. Did not comment on scarring but not likely. - Speech cleared reg diet. # Atypical Chest Pain MSK vs Stable Angina vs Unstable Angina Initial EKG revealed T wave inversions in lateral leads which resolved on secondary Pain not remitting with rest. Sharp, sternal in nature, no radiation. Trops negative. - Stress negative - continue HTN control, asp, plavix, statin therapy # DM - continued metformin, continued lisinopril - a1c pending to further stratify control # HTN - metoprolol, lisinopril, hctz, amlodipine # Hx CAD - as above # Inmate - will need follow up in retirement Fluids: none Diet: Heart Healthy, NPO midnight VTE prophylaxis: lovenox Code: Full Dispo: Pt will likely need > 2 midnight stays for new onset deficits, chest pain but likely home today. Addendum - Attending - Attending Attestation Date/Time: 06/05/19 4333 I personally evaluated the patient and discussed the management with Dr. Charles. I agree with the History, Examination, Assessment and Plan documented above with any addition or exceptions noted below. Patient stable. His stress test showed no ischemia but depressed EF that was refuted with TTE. If BP controlled today he will be stable for discharge and further workup in the outpatient/TDC system.
[2019-06-05 08:00] LABS: Hemoglobin A1c 9.9 % (4.0-6.0)
[2019-06-05] MEDS: Timolol 0.5% Ophth Soln 5 ml Bottle EA EYE SCH ×2 (09:58→20:59)
[2019-06-05] MEDS: Aspirin 81 mg Enteric Coated Tablet PO SCH (09:59)
[2019-06-05] MEDS: Metoprolol Tartrate 25 MG TAB PO SCH ×2 (09:59→20:59)
[2019-06-05] MEDS: metFORMIN 500 MG TAB PO SCH ×2 (09:59→17:32)
[2019-06-05] MEDS: Clopidogrel Bisulfate 75 MG TAB PO SCH (09:59)
[2019-06-05] MEDS: Lisinopril 20 MG TAB PO SCH (09:59)
[2019-06-05] MEDS: Amlodipine 10 MG TAB PO SCH (09:59)
[2019-06-05] MEDS: Hydrochlorothiazide 25 MG TAB PO SCH (09:59)
[2019-06-05] MEDS: Insulin Regular 300 UNITS/3 ML VIAL SC PRN ×2 (11:59→17:33)
[2019-06-05] MEDS ORDERED: Prevnar 13-Val Conj/PF 0.5 ML SYRINGE IM ONE (12:45)
--- NOTE | 2019-06-05 12:47 | EKG ---
Test Reason : Blood Pressure : / mmHG Vent. Rate : 098 BPM Atrial Rate : 098 BPM P-R Int : 164 ms QRS Dur : 084 ms QT Int : 388 ms P-R-T Axes : 062 -15 075 degrees QTc Int : 495 ms Sinus rhythm with Premature atrial complexes with Abberant conduction Nonspecific ST and T wave abnormality Prolonged QT Abnormal ECG Confirmed by VAZQUEZ GRAHAM D.O. ([id number]), associate entertainment editor ANIL PATTERSON ([id number]) on 06/05/2019 12:46:50 PM Referred By: LAWANDA GRAHAM Confirmed By:VAZQUEZ GRAHAM D.O.
[2019-06-05] MEDS: Atorvastatin Calcium 40 MG TAB PO SCH (20:59)
[2019-06-05] MEDS: HumaLOG 300 UNITS/3 ML VIAL SC PRN (21:02)
[2019-06-06 04:39] LABS: #Basophils 0.1 thou/uL (0.0-0.2); #Eosinphils 0.4 thou/uL (0.0-0.7); #Lymphocytes 2.3 thou/uL (1.20-3.40); #Monocytes 0.6 thou/uL (0.11-0.59); #Neutrophils 2.5 thou/uL (1.40-6.50); %Eosinophils 6.8 % (0.0-10.0); %Lymphocytes 39.1 % (21.0-51.0); %Monocytes 10.9 % (0.0-10.0); %Neutrophils 42.3 % (42.0-75.0); Hemoglobin 13.6 g/dL (14.0-18.0); Mean Corpuscular HGB CONC 32.9 g/dL (32.0-36.0); Mean Corpuscular Hemoglobin 31.5 pg (27.0-31.0); Mean Corpuscular Volume 95.7 fL (78.0-98.0); Mean Platelet Volume 8.3 fL (7.4-10.4); Platelet Count 178 thou/uL (130-400); RBC Distribution Width 12.2 % (11.5-14.5); Red Blood Cell (RBC) Count 4.31 mill/uL (4.70-6.10); White Blood Cell (WBC) Count 5.9 thou/uL (4.8-10.8)
[2019-06-06 04:58] LABS: Anion Gap 14 mmol/L (10-20); BUN (Urea Nitrogen) 21 mg/dL (8.4-25.7); Calc. Creatinine Clearance 63 mL/min (70-130); Calcium 8.8 mg/dL (7.8-10.44); Carbon Dioxide 22 mmol/L (23-31); Chloride 103 mmol/L (98-107); Estimated GFR-MDRD 61; Glucose 190 mg/dL (83-110); Sodium 135 mmol/L (136-145)
--- NOTE | 2019-06-06 08:33 | PDOC.FM ---
- Subjective Subjective: Pt is doing well today. He remains with same weakness. Pending placement on detention. - Objective Vital Signs & Weight: Vital Signs (12 hours) Temp Pulse Resp BP BP Pulse Ox 06/06/19 08:02 98.7 F 68 20 90 L 06/06/19 03:49 99.1 F 67 16 134/84 93 L 06/06/19 01:49 94 L 06/05/19 23:17 98.6 F 65 18 149/73 H 90 L 06/05/19 20:59 67 158/77 H 06/05/19 20:43 92 L Weight Admit Weight 91.989 kg Weight 91.989 kg I&O: 06/05/19 06/06/19 06/07/19 06:59 06:59 06:59 Intake Total 240 857 Balance 240 857 Result Diagrams: 06/06/19 03:46 06/06/19 03:46 Phys Exam - Physical Examination Constitutional: NAD HEENT: PERRLA, moist MMs Respiratory: no wheezing, no rales, clear to auscultation bilateral Cardiovascular: RRR, no significant murmur Gastrointestinal: soft, non-tender, no distention Musculoskeletal: no edema, pulses present 4/5 strength on L side, 5/5 strength on R side, R facial droop Psychiatric: normal affect, A&O x 3 Dx/Plan (1) Stroke Code(s): I63.9 - CEREBRAL INFARCTION, UNSPECIFIED Status: Acute (2) Weakness Code(s): R53.1 - WEAKNESS Status: Acute (3) Hypertension Code(s): I10 - ESSENTIAL (PRIMARY) HYPERTENSION Status: Acute (4) Diabetes Code(s): E11.9 - TYPE 2 DIABETES MELLITUS WITHOUT COMPLICATIONS Status: Acute (5) CAD (coronary artery disease) Code(s): I25.10 - ATHSCL HEART DISEASE OF [place] CORONARY ARTERY W/O ANG PCTRS Status: Acute - Plan Plan: Mr Cervantes is a 73 yo male who presents with L sided extremitiy weakness, R sided facial droop, and chest pain. # L sided weakness # R sided facial droop # Acute Stroke New onset. Out of TPA window. CT head negative. CTA head/neck revealed mild R ICA stenosis. CT Dissection negative. MRI revealed acute infarction. Trop x 1 neg. NIH 6. 4-/5 strength on L, 4+/5 on right. - start asp, clopidegril - start atorvastatin - Consult PT/OT/Speech; appreciate rec's - Consult Neurology; appreciate rec's - Echo revealed 50-55% EF - Stress revealed no reversible ischemia or wall motion abnormalities. Did not comment on scarring but not likely. - Speech cleared reg diet. - Pending discharge on pt getting placement at [facility]. [facility] intake is usually closed on weekend so will likely not leave until Friday. [facility]. # Atypical Chest Pain MSK vs Stable Angina vs Unstable Angina Initial EKG revealed T wave inversions in lateral leads which resolved on secondary Pain not remitting with rest. Sharp, sternal in nature, no radiation. Trops negative. - Stress negative - continue HTN control, asp, plavix, statin therapy # DM - continued metformin, continued lisinopril - Levemir 5 initiated, pt required 6 U fast acting yesterday. Will need to titrate in outpt setting to get to target range 140-180. # HTN - metoprolol, lisinopril, hctz, amlodipine # Hx CAD - as above # Inmate - will need follow up in correction Fluids: none Diet: Heart Healthy, NPO midnight VTE prophylaxis: lovenox Code: Full Dispo: Pt will likely need > 2 midnight stays for new onset deficits, chest pain but likely home today. Addendum - Attending - Attending Attestation Date/Time: 06/06/19 4884 I personally evaluated the patient and discussed the management with Dr. Charles. I agree with the History, Examination, Assessment and Plan documented above with any addition or exceptions noted below. Patient stable fir discharge. Awaiting TDC for placement.
[2019-06-06] MEDS: Hydrochlorothiazide 25 MG TAB PO SCH (08:38)
[2019-06-06] MEDS: Metoprolol Tartrate 25 MG TAB PO SCH ×2 (08:38→21:20)
[2019-06-06] MEDS: metFORMIN 500 MG TAB PO SCH ×2 (08:38→17:17)
[2019-06-06] MEDS: Amlodipine 10 MG TAB PO SCH (08:40)
[2019-06-06] MEDS: Timolol 0.5% Ophth Soln 5 ml Bottle EA EYE SCH ×2 (08:41→21:21)
[2019-06-06] MEDS: Clopidogrel Bisulfate 75 MG TAB PO SCH (08:41)
[2019-06-06] MEDS: Lisinopril 20 MG TAB PO SCH (08:41)
[2019-06-06] MEDS: Aspirin 81 mg Enteric Coated Tablet PO SCH (08:41)
[2019-06-06] MEDS: Insulin Regular 300 UNITS/3 ML VIAL SC PRN ×2 (11:14→17:15)
[2019-06-06] MEDS: Atorvastatin Calcium 40 MG TAB PO SCH (21:20)
--- NOTE | 2019-06-07 05:50 | PDOC.FM ---
- Subjective Subjective: Patient resting in bed this morning. Voices that he still feels weak in extremities. Otherwise no complaints. - Objective MAR Reviewed: Yes Vital Signs & Weight: Vital Signs (12 hours) Temp Pulse Resp BP BP Pulse Ox 06/07/19 01:22 98.1 F 68 14 92 L 06/06/19 21:21 70 146/68 H 06/06/19 20:00 99.0 F 69 20 146/68 H 95 Weight Admit Weight 91.989 kg Weight 91.989 kg I&O: 06/05/19 06/06/19 06/07/19 06:59 06:59 06:59 Intake Total 240 857 Balance 240 857 Result Diagrams: 06/06/19 03:46 06/06/19 03:46 Phys Exam - Physical Examination Constitutional: NAD occasional slurred speech HEENT: moist MMs, sclera anicteric Neck: no JVD, full ROM Respiratory: no wheezing, clear to auscultation bilateral Cardiovascular: RRR, no significant murmur Gastrointestinal: soft, non-tender, no distention, positive bowel sounds Musculoskeletal: no edema, pulses present 4 out of 5 strength in bilateral UE, 5/5 in bilateral LE Neurological: normal sensation, moves all 4 limbs Psychiatric: normal affect, A&O x 3 Skin: no rash, normal turgor Dx/Plan (1) CAD (coronary artery disease) Code(s): I25.10 - ATHSCL HEART DISEASE OF [place] CORONARY ARTERY W/O ANG PCTRS Status: Acute Qualifiers: Coronary Disease-Associated Artery/Lesion type: unspecified vessel or lesion type [place] vs. 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 Diabetes mellitus complication status: without complication Qualified Code(s): E11.9 - Type 2 diabetes mellitus without complications (3) Hypertension Code(s): I10 - ESSENTIAL (PRIMARY) HYPERTENSION Status: Acute Qualifiers: Hypertension type: essential hypertension Qualified Code(s): I10 - Essential (primary) hypertension (4) Stroke Code(s): I63.9 - CEREBRAL INFARCTION, UNSPECIFIED Status: Acute Qualifiers: CVA mechanism: unspecified Qualified Code(s): I63.9 - Cerebral infarction, unspecified (5) Weakness Code(s): R53.1 - WEAKNESS Status: Acute - Plan Plan: Patient is a 73 yo male who presents with L sided extremity weakness, R sided facial droop, and chest pain is admitted for CVA: #Acute Stroke -L sided weakness, R sided facial droop -New onset. Outside of TPA window. CT head negative. CTA head/neck revealed mild R ICA stenosis. CT Dissection negative. MRI revealed acute infarction. -Trop x 1 neg. NIH 6. 4-/5 strength on L, 4+/5 on right. - start aspirin, clopidegril - start atorvastatin - Consult PT/OT/Speech; appreciate rec's - Consult Neurology; appreciate rec's - Echo revealed EF 50-55% - Stress revealed no reversible ischemia or wall motion abnormalities. - Speech cleared for regular diet. - Pending discharge on pt getting placement at [facility] due to necessity for rehab. [facility] intake is usually closed on weekends but had temporary acceptance on Monday 06/04 so anticipate placement later today (06/07) # Atypical Chest Pain -MSK vs Stable Angina vs Unstable Angina -Initial EKG revealed T wave inversions in lateral leads which resolved on secondary Pain not remitting with rest. Sharp, sternal in nature, no radiation. - Trops negative. - Stress negative - continue HTN control, asp, plavix, statin therapy # DM - continued metformin, lisinopril - Levemir 5 units initiated, pt required 6 U fast acting yesterday. Will need to titrate in outpt setting to get to target range 140-180. - [facility]ve[facility], will require NPH and/or regular insulin for therapy. If patient stays another day will initiate insulin titration in hospital with NPH 14 units BID, and regular insulin 3-4 units with meals # HTN - metoprolol, lisinopril, hctz, amlodipine # Hx CAD - as above # Inmate - will need follow up in longterm Diet: Heart Healthy, NPO midnight VTE prophylaxis: lovenox Code: FULL Dispo: Stable, admitted to inpatient on telemetry. [facility] or [facility]. Anticipate discharge in < 48 hours. Addendum - Attending - Attending Attestation Date/Time: 06/07/19 1289 I personally evaluated the patient and discussed the management with Dr. Stafford I agree with the History, Examination, Assessment and Plan documented above with any addition or exceptions noted below. patient need continued optimization of meds need speech therapy evaluation and convert to realistic insulin rx available through [facility] formulary is stable for tranfer to rehab within custodial system pending placement at this time
[2019-06-07] MEDS: metFORMIN 500 MG TAB PO SCH ×2 (08:24→17:33)
[2019-06-07] MEDS: Aspirin 81 mg Enteric Coated Tablet PO SCH (08:24)
[2019-06-07] MEDS: Lisinopril 20 MG TAB PO SCH (08:24)
[2019-06-07] MEDS: Clopidogrel Bisulfate 75 MG TAB PO SCH (08:24)
[2019-06-07] MEDS: Hydrochlorothiazide 25 MG TAB PO SCH (08:24)
[2019-06-07] MEDS: Metoprolol Tartrate 25 MG TAB PO SCH ×2 (08:24→21:30)
[2019-06-07] MEDS: Amlodipine 10 MG TAB PO SCH (08:24)
[2019-06-07] MEDS: Timolol 0.5% Ophth Soln 5 ml Bottle EA EYE SCH (08:25)
[2019-06-07] MEDS ORDERED: Insulin Glargine 5 UNITS in Pre-Filled Syringe 1 EACH SC SCH (09:00)
[2019-06-07] MEDS: Insulin Regular 300 UNITS/3 ML VIAL SC SCH (17:33)
[2019-06-07] MEDS: Atorvastatin Calcium 40 MG TAB PO SCH (21:30)
[2019-06-07] MEDS: Ondansetron PF 4 MG/2 ML Vial IVP PRN (23:16)
[2019-06-08] MEDS: Timolol 0.5% Ophth Soln 5 ml Bottle EA EYE SCH ×3 (01:04→21:02)
[2019-06-08] MEDS: NPH, Human Insulin Isophane 300 UNIT/3 ML VIAL SC SCH ×3 (01:10→21:18)
--- NOTE | 2019-06-08 06:52 | PDOC.FM ---
- Subjective Subjective: Overnight patient had 1 episode of vomiting around 2029, he subsequently refused to take his NPH. He did have 3 units of regular insulin with dinner yesterday. Patient is agreeable to taking insulin but just did not want to take last night due to the vomiting episode. Zofran was given and n/v improved. Speech eval showed no signs of aspiration. This morning patient voices no complaints. - Objective Vital Signs & Weight: Vital Signs (12 hours) Temp Pulse Resp BP Pulse Ox 06/08/19 04:04 99 F 84 18 91 L 06/08/19 01:04 67 06/08/19 00:00 98.8 F 82 14 140/74 93 L 06/07/19 20:00 91 L 06/07/19 19:12 98.9 F 67 18 91 L Weight Admit Weight 91.989 kg Weight 91.989 kg I&O: 06/06/19 06/07/19 06/08/19 06:59 06:59 06:59 Intake Total 857 50 Balance 857 50 Result Diagrams: 06/06/19 03:46 06/06/19 03:46 Phys Exam - Physical Examination Constitutional: NAD speech somewhat difficult to understand HEENT: moist MMs, sclera anicteric Neck: no JVD, supple, full ROM Respiratory: no wheezing, no rhonchi, clear to auscultation bilateral Cardiovascular: RRR, no significant murmur Gastrointestinal: soft, non-tender, positive bowel sounds Musculoskeletal: no edema, pulses present strength 4/5 in all extremities Neurological: normal sensation Psychiatric: normal affect, A&O x 3 Skin: no rash, normal turgor Dx/Plan (1) CAD (coronary artery disease) Code(s): I25.10 - ATHSCL HEART DISEASE OF [place] CORONARY ARTERY W/O ANG PCTRS Status: Acute Qualifiers: Coronary Disease-Associated Artery/Lesion type: unspecified vessel or lesion type [place] vs. 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 retirement use Diabetes mellitus complication status: without complication Qualified Code(s): E11.9 - Type 2 diabetes mellitus without complications (3) Hypertension Code(s): I10 - ESSENTIAL (PRIMARY) HYPERTENSION Status: Acute Qualifiers: Hypertension type: essential hypertension Qualified Code(s): I10 - Essential (primary) hypertension (4) Stroke Code(s): I63.9 - CEREBRAL INFARCTION, UNSPECIFIED Status: Acute Qualifiers: CVA mechanism: unspecified Qualified Code(s): I63.9 - Cerebral infarction, unspecified (5) Weakness Code(s): R53.1 - WEAKNESS Status: Acute - Plan Plan: Patient is a 73 yo male who presents with L sided extremity weakness, R sided facial droop, and chest pain is admitted for CVA: #Acute Stroke -L sided weakness, R sided facial droop -New onset. Outside of TPA window. CT head negative. CTA head/neck revealed mild R ICA stenosis. CT Dissection negative. MRI revealed acute infarction. -Trop x 1 neg. NIH 6. 4-/5 strength on L, 4+/5 on right. - start aspirin, clopidegril - start atorvastatin - Consult PT/OT/Speech; appreciate rec's - Consult Neurology; appreciate rec's - Echo revealed EF 50-55% - Stress revealed no reversible ischemia or wall motion abnormalities. - Speech cleared for regular diet. - Pending discharge on pt getting placement at [facility] due to necessity for rehab, anticipate placement later today (06/08) # Atypical Chest Pain -MSK vs Stable Angina vs Unstable Angina -Initial EKG revealed T wave inversions in lateral leads which resolved on secondary Pain not remitting with rest. Sharp, sternal in nature, no radiation. - Trops negative. - Stress negative - continue HTN control, asp, plavix, statin therapy # DM - continued metformin, lisinopril - [facility] not [facility] levemir, will require NPH and/or regular insulin for therapy. Will initiate insulin titration in hospital with NPH 10 units BID, and regular insulin 3 units with meals - continue to monitor glucose checks and titrate insulin up as necessary # HTN - metoprolol, lisinopril, hctz, amlodipine # Hx CAD - as above # Inmate - will need follow up in correction Diet: Heart Healthy, NPO midnight VTE prophylaxis: lovenox Code: FULL Dispo: Stable, admitted to inpatient on telemetry. Anticipate discharge to [facility] for continued rehab later today or tomorrow. Anticipate discharge in < 48 hours. Addendum - Attending - Attending Attestation Date/Time: 06/08/19 3585 I personally evaluated the patient and discussed the management with Dr. Stafford I agree with the History, Examination, Assessment and Plan documented above with any addition or exceptions noted below. Patient swallow study wnl will continue PT maximize post CVA management ASA/ Plavix and awaitinh referral to rehab type setting within halfway system
[2019-06-08] MEDS: Hydrochlorothiazide 25 MG TAB PO SCH (09:10)
[2019-06-08] MEDS: Clopidogrel Bisulfate 75 MG TAB PO SCH (09:10)
[2019-06-08] MEDS: Lisinopril 20 MG TAB PO SCH (09:10)
[2019-06-08] MEDS: Amlodipine 10 MG TAB PO SCH (09:10)
[2019-06-08] MEDS: metFORMIN 500 MG TAB PO SCH ×2 (09:10→17:00)
[2019-06-08] MEDS: Insulin Regular 300 UNITS/3 ML VIAL SC SCH ×3 (09:11→16:59)
[2019-06-08] MEDS: Aspirin 81 mg Enteric Coated Tablet PO SCH (09:11)
[2019-06-08] MEDS: Metoprolol Tartrate 25 MG TAB PO SCH ×2 (09:11→21:01)
[2019-06-08] MEDS ORDERED: Insulin Regular 300 UNITS/3 ML VIAL SC PRN (13:19)
[2019-06-08] MEDS: Ondansetron PF 4 MG/2 ML Vial IVP PRN (17:03)
[2019-06-08] MEDS: Atorvastatin Calcium 40 MG TAB PO SCH (21:01)
--- NOTE | 2019-06-09 06:14 | PDOC.FM ---
- Subjective Subjective: Patient states that he feels somewhat nauseous. Was able to eat meals yesterday but complains of decreased appetite this morning. Otherwise states he feels about the same, continued weakness in extremities. - Objective Vital Signs & Weight: Vital Signs (12 hours) Temp Pulse Resp BP BP Pulse Ox 06/09/19 04:00 98.2 F 63 14 125/60 93 L 06/09/19 00:00 98.1 F 61 15 117/65 95 06/08/19 21:02 65 123/64 06/08/19 20:00 98.3 F 65 15 123/64 96 Weight Admit Weight 91.989 kg Weight 91.989 kg I&O: 06/07/19 06/08/19 06/09/19 06:59 06:59 06:59 Intake Total 50 120 845 Balance 50 120 845 Result Diagrams: 06/06/19 03:46 06/06/19 03:46 Phys Exam - Physical Examination Constitutional: NAD HEENT: moist MMs, sclera anicteric Neck: no JVD, supple Respiratory: no wheezing, no rhonchi, clear to auscultation bilateral Cardiovascular: RRR, no significant murmur Gastrointestinal: soft, non-tender, no distention, positive bowel sounds Musculoskeletal: no edema, pulses present strength 4/5 in all extremities Neurological: normal sensation Psychiatric: normal affect, A&O x 3 Skin: no rash, normal turgor Dx/Plan (1) CAD (coronary artery disease) Code(s): I25.10 - ATHSCL HEART DISEASE OF [place] CORONARY ARTERY W/O ANG PCTRS Status: Acute Qualifiers: Coronary Disease-Associated Artery/Lesion type: unspecified vessel or lesion type [place] vs. transplanted heart: [place] heart Associated angina: with unspecified angina Qualified Code(s): I25.119 - Atherosclerotic heart disease of [place] coronary artery with unspecified angina pectoris (2) Diabetes Code(s): E11.9 - TYPE 2 DIABETES MELLITUS WITHOUT COMPLICATIONS Status: Acute Qualifiers: Diabetes mellitus type: type 2 Diabetes mellitus mcfp insulin use: without intermediate frame tender use Diabetes mellitus complication status: without complication Qualified Code(s): E11.9 - Type 2 diabetes mellitus without complications (3) Hypertension Code(s): I10 - ESSENTIAL (PRIMARY) HYPERTENSION Status: Acute Qualifiers: Hypertension type: essential hypertension Qualified Code(s): I10 - Essential (primary) hypertension (4) Stroke Code(s): I63.9 - CEREBRAL INFARCTION, UNSPECIFIED Status: Acute Qualifiers: CVA mechanism: unspecified Qualified Code(s): I63.9 - Cerebral infarction, unspecified (5) Weakness Code(s): R53.1 - WEAKNESS Status: Acute - Plan Plan: Patient is a 73 yo male who presents with L sided extremity weakness, R sided facial droop, and chest pain is admitted for CVA: #Acute Stroke -L sided weakness, R sided facial droop -New onset. Outside of TPA window. CT head negative. CTA head/neck revealed mild R ICA stenosis. CT Dissection negative. MRI revealed acute infarction. -Trop x 1 neg. NIH 6. 4-/5 strength on L, 4+/5 on right. - start aspirin, clopidegril - start atorvastatin - Consult PT/OT/Speech; appreciate rec's - Consult Neurology; appreciate rec's - Echo revealed EF 50-55% - Stress revealed no reversible ischemia or wall motion abnormalities. - Speech cleared for regular diet. - Pending discharge on pt getting placement at [facility] due to necessity for rehab, anticipate placement later today (06/09) # Atypical Chest Pain -MSK vs Stable Angina vs Unstable Angina -Initial EKG revealed T wave inversions in lateral leads which resolved on secondary Pain not remitting with rest. Sharp, sternal in nature, no radiation. - Trops negative. - Stress negative - continue HTN control, asp, plavix, statin therapy # DM - continued metformin, lisinopril - patient is from [facility] facility that does not have levemir, will require NPH and/or regular insulin for therapy. Will initiate insulin titration in hospital with NPH 10 units BID, and regular insulin 3 units with meals - continue to monitor glucose checks and titrate insulin up as necessary--post- NPH administration checks have been elevated, will consider increasing NPH to 12 units BID, glucose checks just prior to meals appear to be in 110s-120s # HTN - metoprolol, lisinopril, hctz, amlodipine # Hx CAD - as above # Inmate - will need follow up in [facility] Diet: Heart Healthy, NPO midnight VTE prophylaxis: lovenox Code: FULL Dispo: Stable, admitted to inpatient on telemetry. Anticipate discharge to [facility] for continued rehab later today or tomorrow. Anticipate discharge in < 48 hours. Addendum - Attending - Attending Attestation Date/Time: 06/09/191917 I personally evaluated the patient and discussed the management with Dr. Stafford I agree with the History, Examination, Assessment and Plan documented above with any addition or exceptions noted below. Continue fine tune NPH dosage and physical therapy disposition pending per [facility].
[2019-06-09] MEDS: Aspirin 81 mg Enteric Coated Tablet PO SCH (09:48)
[2019-06-09] MEDS: Lisinopril 20 MG TAB PO SCH (09:48)
[2019-06-09] MEDS: metFORMIN 500 MG TAB PO SCH ×2 (09:48→17:08)
[2019-06-09] MEDS: Clopidogrel Bisulfate 75 MG TAB PO SCH (09:48)
[2019-06-09] MEDS: Amlodipine 10 MG TAB PO SCH (09:48)
[2019-06-09] MEDS: Hydrochlorothiazide 25 MG TAB PO SCH (09:48)
[2019-06-09] MEDS: Insulin Regular 300 UNITS/3 ML VIAL SC SCH ×3 (09:49→17:10)
[2019-06-09] MEDS: Metoprolol Tartrate 25 MG TAB PO SCH ×2 (09:49→20:44)
[2019-06-09] MEDS: Timolol 0.5% Ophth Soln 5 ml Bottle EA EYE SCH ×2 (09:49→20:44)
[2019-06-09] MEDS: NPH, Human Insulin Isophane 300 UNIT/3 ML VIAL SC SCH ×3 (09:49→20:44)
[2019-06-09] MEDS: Atorvastatin Calcium 40 MG TAB PO SCH (20:44)
[2019-06-10 07:50] VITALS: BP 133/66; TEMP 98.6
[2019-06-10] MEDS: Timolol 0.5% Ophth Soln 5 ml Bottle EA EYE SCH (08:39)
[2019-06-10] MEDS: metFORMIN 500 MG TAB PO SCH (08:40)
[2019-06-10] MEDS: Aspirin 81 mg Enteric Coated Tablet PO SCH (08:41)
[2019-06-10] MEDS: Clopidogrel Bisulfate 75 MG TAB PO SCH (08:41)
[2019-06-10] MEDS: Lisinopril 20 MG TAB PO SCH (08:41)
[2019-06-10] MEDS: NPH, Human Insulin Isophane 300 UNIT/3 ML VIAL SC SCH (08:41)
[2019-06-10] MEDS: Metoprolol Tartrate 25 MG TAB PO SCH (08:41)
[2019-06-10] MEDS: Hydrochlorothiazide 25 MG TAB PO SCH (08:41)
[2019-06-10] MEDS: Amlodipine 10 MG TAB PO SCH (08:41)
[2019-06-10] MEDS: Insulin Regular 300 UNITS/3 ML VIAL SC SCH (08:42)
--- NOTE | 2019-06-11 05:04 | DIS ---
DATE OF ADMISSION: 06/03/2019 DATE OF DISCHARGE: 06/10/2019 RESIDENT: Vi Stafford DO. ADMITTING ATTENDING: Star Patino MD. DISCHARGE ATTENDING: Hari Schafer MD. CONSULTATIONS: 1. Neurology, Dr. Patel. 2. Occupational Therapy. 3. Physical therapy 4. Speech therapy 5. Stroke team. PROCEDURES: 1. Brain CT on June 03, 2019. Results: No evidence of acute intracranial abnormality. 2. CT angiography on June 03, 2019. No acute findings. 3. CTA neck. No acute findings, right internal carotid artery with mild stenosis. 4. CT [place] angio with and without contrast on June 03, 2019. No acute findings. 5. CT dissection protocol on June 03, 2019. Results: No acute vascular findings. Mild bibasal subsegmental atelectasis and dependent ground-glass attenuation compatible with passive atelectasis. Mild apparent gastric wall thickening versus partial distention. 6. Brain MRI on June 03, 2019. Results: Acute lacunar infarction in the left cerebral hemisphere (thalamus and centrum semiovale). 7. Stress test on June 04, 2019. Results: No evidence of reversible ischemia. Decreased ejection fraction of 41%. 8. Echocardiogram on June 04, 2019. Results: Ejection fraction of 50% to 55 % suggestive of diastolic dysfunction. Left atrium is mildly dilated. Mild mitral regurgitation. Aortic valve is sclerotic. Mild tricuspid regurgitation. PRIMARY DIAGNOSIS: Acute stroke. SECONDARY DIAGNOSES: 1. Atypical chest pain. 2. Diabetes mellitus, insulin dependent. 3. Hypertension. 4. History of coronary artery disease. 5. History of hepatitis C. DISCHARGE MEDICATION: 1. Atorvastatin 80 mg p.o. at bedtime. 2. Plavix 75 mg p.o. daily. 3. Metoprolol tartrate 25 mg p.o. b.i.d. 4. NPH insulin 12 units subcu b.i.d. 5. Regular insulin 3 units t.i.d. with meals. 6. Lisinopril 20 mg p.o. daily. 7. Timolol eyedrops 0.5% solution. 8. Metformin 1000 mg p.o. b.i.d. 9. Aspirin 81 mg p.o. daily. 10. Hydrochlorothiazide 25 mg p.o. daily. 11. Amlodipine 10 mg p.o. daily. 12. Minoxidil 7.5 mg p.o. at bedtime. DISCONTINUED MEDICATIONS: Nicardipine 20 mg IV drip protocol. 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 These deficits began yesterday afternoon when he noticed mostly dysarthria. He decided to sleep it off, but woke up this morning without alleviation of symptoms and increased left-sided weakness. He stated at that time that other family members became concerned with this condition, so decided to come to the ED. He has never had symptoms like this before. While in the emergency department, he began experiencing sternal, sharp chest pain that was nonradiating and was not relieved while at rest. Of note, he did have a fall the day prior. He went to [facility], they discharged him home, although we do not have records from that ED visit. He states his symptoms became worse after discharge. In our ED, he was noted to have blood pressures of 240/130s and was started on a Cardizem drip. He was noted to have an NIH score of 18, but this was partially due to his inability to perform testing as he is blind per the ED. Troponins were negative x1. CT head negative, CT aortic dissection protocol negative, CTA of the head and neck revealed mild right proximal ICA stenosis. The patient was admitted to inpatient on the stroke unit for further workup. Upon arrival to the floor, an MRI was ordered for suspected stroke. The patient was outside of the tPA window at this time. The patient was allowed permissive hypertension and labetalol was placed p.r.n. for blood pressures greater than 220/110. Physical therapy, occupational therapy, and speech therapy were all consulted. Dr. Patel with Neurology was also consulted. His recommendation was to continue with the current treatment plan, he thought his prognosis was good for functional recovery. He also recommended adding Plavix since he was previously taking aspirin. The patient's MRI revealed an acute infarction. Troponins remained negative. The patient continued to have weakness with 4/5 strength in all extremities. This weakness remained the same throughout the duration of his stay. The patient had a stress test performed during his stay, which was essentially normal. The patient had an echo performed, which revealed an EF of 50% to 55% percent, likely diastolic dysfunction. Throughout his stay, the patient's blood glucose checks remained elevated. Due to him being a state [facility] inmate options were limited as to choice for insulin. It was decided to start the patient on NPH 10 units b.i.d. and regular insulin 3 units t.i.d. with meals. This was then titrated up due to continued high sugars with ultimately NPH being 12 units b.i.d. and regular insulin 3 units with meals. These will need to be continued to be titrated in the outpatient setting for a goal blood glucose range of 120-180. Due to the need for the patient needing continued physical therapy and speech therapy, he was a candidate for placement for [facility]. When requested the bed was not available and the patient stayed an additional 4 days on the floor, awaiting placement. On the boiler installer of June 10, 2019, an [facility] bed became available and the patient was transferred to that facility. DISPOSITION: Stable. DISCHARGE INSTRUCTIONS: 1. Location: [facility] bed. 2. Diet: Heart healthy. 3. Activity: As tolerated. 4. Follow up with primary care provider in 3 to 5 days for hospital followup. Job ID: [id number] MTDD
== END 2019-06-10 09:21 | DRG 65 ==
LOC: ERS 05:52 → 2SE 08:51
PROVIDERS: ADMIT Family Medicine; ATTEND Family Medicine
PROC: B3251ZZ Computerized Tomography (CT Scan) of Bilateral Common Carotid Arteries using Low Osmolar Contrast (ICD-10-PCS; principal; 2019-06-03)
PROC: B32G1ZZ Computerized Tomography (CT Scan) of Bilateral Vertebral Arteries using Low Osmolar Contrast (ICD-10-PCS; 2019-06-03)
PROC: B32R1ZZ Computerized Tomography (CT Scan) of Intracranial Arteries using Low Osmolar Contrast (ICD-10-PCS; 2019-06-03)
PROC: B3281ZZ Computerized Tomography (CT Scan) of Bilateral Internal Carotid Arteries using Low Osmolar Contrast (ICD-10-PCS; 2019-06-03)
DX: I63.81 Other cerebral infarction due to occlusion or stenosis of small artery (principal); G81.94 Hemiplegia, unspecified affecting left nondominant side; R29.718 NIHSS score 18; R29.810 Facial weakness; I10 Essential (primary) hypertension; I25.119 Atherosclerotic heart disease of native coronary artery with unspecified angina pectoris; E11.9 Type 2 diabetes mellitus without complications; I65.21 Occlusion and stenosis of right carotid artery; Z79.82 Long term (current) use of aspirin; Z79.899 Other long term (current) drug therapy; Z79.84 Long term (current) use of oral hypoglycemic drugs; Z88.0 Allergy status to penicillin
CPT/HCPCS: 36415; 36416; 70450; 70496; 70498; 70551; 71045; 71275; 72191; 74175; 78452; 80048; 80053; 80061; 80306; 80307; 81003; 82550; 83036; 83605; 84443; 84484; 85025; 85610; 85730; 87324; 87449; 87804; 90471; 90662; 90670; 93005; 93010; 93017; 93306; 96360; 96365; 96375; A9500; G0008; G0009; J0153; J1815; J2270; J2405; Q9967

== ENCOUNTER 2019-12-17 11:19 | Inpatient (IN) | payer OTHER ==
[2019-12-17 12:27] LABS: #Basophils 0.1 thou/uL (0.0-0.2); #Eosinphils 0.1 thou/uL (0.0-0.7); #Lymphocytes 2.3 thou/uL (1.20-3.40); #Monocytes 0.8 thou/uL (0.11-0.59); #Neutrophils 2.7 thou/uL (1.40-6.50); %Basophils 1.6 % (0.0-1.0); %Eosinophils 1.7 % (0.0-10.0); %Lymphocytes 38.8 % (21.0-51.0); %Monocytes 13.2 % (0.0-10.0); %Neutrophils 44.7 % (42.0-75.0); Hemoglobin 14.1 g/dL (14.0-18.0); Mean Corpuscular HGB CONC 33.8 g/dL (32.0-36.0); Mean Corpuscular Hemoglobin 33.3 pg (27.0-31.0); Mean Corpuscular Volume 98.5 fL (78.0-98.0); Platelet Count 189 thou/uL (130-400); RBC Distribution Width 12.2 % (11.5-14.5); Red Blood Cell (RBC) Count 4.25 mill/uL (4.70-6.10)
[2019-12-17 12:34] LABS: INR-International Normal Ratio 0.9; PTT 25.3 SEC (22.9-36.1)
--- NOTE | 2019-12-17 12:42 | RAD ---
RADIOGRAPH CHEST 1 VIEW: DATE: 12/17/2019 HISTORY: 74-year-old male with chest pain FINDINGS: There are no airspace densities, pulmonary edema, pneumothorax, or cardiomegaly. The lateral costophr enic angles are sharp. IMPRESSION: No acute cardiopulmonary findings.
[2019-12-17 12:51] LABS: ALT (SGPT) 34 U/L (8-55); AST (SGOT) 26 U/L (5-34); Albumin 3.8 g/dL (3.4-4.8); Alkaline Phosphatase 85 U/L (40-110); Anion Gap 12 mmol/L (10-20); BUN (Urea Nitrogen) 22 mg/dL (8.4-25.7); Bilirubin, Total 0.6 mg/dL (0.2-1.2); Calc. Creatinine Clearance 0 mL/min (70-130); Calcium 9.6 mg/dL (7.8-10.44); Carbon Dioxide 29 mmol/L (23-31); Chloride 101 mmol/L (98-107); Estimated GFR-MDRD 60; Globulin 3.8 g/dL (2.4-3.5); Glucose 96 mg/dL (83-110); Potassium 3.9 mmol/L (3.5-5.1); Protein, Total 7.6 g/dL (5.8-8.1); Sodium 138 mmol/L (136-145)
[2019-12-17] MEDS ORDERED: Morphine 4 MG/ML VIAL ONE (13:51)
[2019-12-17] MEDS ORDERED: Piperacillin/Tazobactam 4.5 GM VIAL ONE (13:51)
[2019-12-17] MEDS ORDERED: Vancomycin 1 GM/200 ML BAG ONE (14:49)
[2019-12-17] MEDS ORDERED: hydrALAZINE 20 MG/ML VIAL ONE (15:18)
--- NOTE | 2019-12-17 15:33 | RAD ---
RIGHT FOOT THREE VIEW: 12/17/19 HISTORY: Infection. COMPARISON: None. FINDINGS: There is soft tissue swelling throughout the forefoot. There is mild irregularity through the tuft of the distal phalanx of the second toe. Osteophyte formation and likely an old fracture through the base of the distal phalanx great toe. Mild vascular calcifications along the medial aspect of the great toe metatarsophalangeal joint. Mode rate vascular calcifications. IMPRESSION: 1. Mild tuft irregularity with soft tissue swelling distal phalanx of the second toe could refle ct early osteomyelitis. MRI recommended if clinically warranted. 2. Age indeterminate though likely chronic or subacute fracture through the base of the great to e proximal phalanx. POS: HOME
[2019-12-17] MEDS ORDERED: Labetalol HCl 100 MG/20 ML VIAL SLOW IVP PRN (16:35)
[2019-12-17] MEDS ORDERED: Dextrose 50% Abboject 50 ML SYRINGE SLOW IVP PRN (16:35)
[2019-12-17] MEDS ORDERED: HYDROcodone/Acetaminophen 5/325 mg Tablet PO PRN ×2 (16:35)
[2019-12-17] MEDS ORDERED: HumaLOG 300 UNITS/3 ML VIAL SC PRN ×2 (16:35)
[2019-12-17] MEDS ORDERED: hydrALAZINE 20 MG/ML VIAL SLOW IVP PRN (16:35)
[2019-12-17] MEDS ORDERED: Ondansetron PF 4 MG/2 ML Vial IVP PRN (16:35)
[2019-12-17] MEDS ORDERED: Dextrose 5% in Water 1,000 ML IV PRN (16:35)
[2019-12-17] MEDS ORDERED: Acetaminophen 500 MG TAB PO PRN (16:35)
[2019-12-17] MEDS ORDERED: Ondansetron ODT 4 MG TAB PO PRN (16:35)
[2019-12-17] MEDS: cefTRIAXone\\ROCEPHIN 2 GM in Sodium Chloride 0.9% 100 ML IVPB SCH (19:19)
[2019-12-17] MEDS: Sodium Chloride 0.9% 1,000 ML IV SCH (19:19)
[2019-12-17] MEDS ORDERED: Famotidine 20 MG TAB PO SCH (21:00)
[2019-12-17 21:11] VITALS: BMI 27.9
--- NOTE | 2019-12-17 22:13 | HP ---
PRIMARY CARE PROVIDER: Brandi Alonzo [place] [facility]. CHIEF COMPLAINT: Bilateral feet pain. HISTORY OF PRESENT ILLNESS: This is a 74-year-old male, who presents to [facility] in transfer from the [place] [facility] with patient complaining of bilateral feet pain. The patient states he has noticed the symptoms over the last four weeks, not positional in nature, throbbing and equally painful on both feet. The patient noted swelling to his second toe of the right foot over the last several days. The patient denied any direct trauma injury, fall, or dropping of an object on his foot. The patient denied any change to his footwear and states he checks his feet fairly regularly due to history of diabetes mellitus type 2. The patient admits to diabetes mellitus over the last 10 years, on insulin therapy. The patient denied any prior ulcerations or surgical intervention to his feet in the past. The patient denied any documented fever, but feels generally weak. The patient denied any change to his chronic medication regimen or therapy directed at this feet. In the emergency room, the patient underwent general evaluation including plain radiographs of the right foot showing irregularity of the distal phalanx of the right second toe, concerning for potential infectious process. The patient was initiated on IV Zosyn 4.5 g IV piggyback in addition to vancomycin 1 g IV x1 and hydralazine with morphine sulfate. PAST MEDICAL HISTORY: 1. 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 2. Coronary artery disease. 3. Hypertension. 4. Coronary artery disease, status post cardiac stent placement x2. 5. Peripheral neuropathy, undiagnosed. 6. 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 7. Hyperlipidemia. 8. Vision loss. 9. Chronic viral hepatitis C. 10. Chronic kidney disease, stage 3. PAST SURGICAL HISTORY: Status post cardiac stent placement x2, 2013. CURRENT MEDICATIONS: 1. Amlodipine 10 mg p.o. daily. 2. Atorvastatin 80 mg p.o. daily. 3. Plavix 75 mg p.o. daily. 4. Aspirin 81 mg p.o. daily. 5. Lisinopril 20 mg 1 tablet p.o. daily. 6. Metoprolol 50 mg one tablet p.o. b.i.d. 7. Novolin N 16 units subcutaneously b.i.d. 8. Insulin sliding scale. 9. Sertraline 50 mg p.o. daily. 10. Ziprasidone 40 mg p.o. at bedtime. 11. Hydrochlorothiazide 25 mg p.o. daily. 12. Nitroglycerin 0.4 mg sublingually p.r.n. chest pain. ALLERGIES: NO KNOWN DRUG ALLERGIES. FAMILY HISTORY: Mother with coronary artery disease. SOCIAL HISTORY: Currently incarcerated in the [place] [facility]. No current alcohol, tobacco, or illicit drug use. REVIEW OF SYSTEMS: CONSTITUTIONAL: Negative for weight loss or gain, ability to conduct usual activities. SKIN: Negative for rash, itching. EYES: Negative for double vision, pain. ENT/MOUTH: Negative for nose bleeding, neck stiffness, pain, tenderness. CARDIOVASCULAR: Negative for palpitations, dyspnea on exertion, orthopnea. RESPIRATORY: Negative for shortness of breath, wheezing, cough, hemoptysis, fever or night sweats. GASTROINTESTINAL: Negative for poor appetite, abdominal pain, heartburn, nausea, vomiting, constipation, or diarrhea. GENITOURINARY: Negative for urgency, frequency, dysuria, nocturia. MUSCULOSKELETAL: Negative for pain, swelling. NEUROLOGIC/PSYCHIATRIC: Negative for anxiety, depression. ALLERGY/IMMUNOLOGIC: Negative for skin rash, bleeding tendency. Otherwise negative except as stated per HPI. PHYSICAL EXAMINATION: VITAL SIGNS: On admission, blood pressure 189/99, pulse 79, respiratory rate 18, temperature 98.9 degrees Fahrenheit, O2 saturation 97% on room air. GENERAL APPEARANCE: This is a 74-year-old male, alert and oriented x3, pleasant, responsive, in no acute distress. HEENT: Pupils are equal, round, reactive to light and accommodation. Extraocular muscles are intact. No scleral icterus. No conjunctival injection. Opacification of the cornea noted. Nares patent. OP is clear. Teeth in fair repair. NECK: Supple. No cervical adenopathy. No thyromegaly. No carotid bruits. No JVD appreciated. Cervical spine with full active and passive range of motion. No meningeal signs noted. CHEST: Lungs are clear to auscultation bilaterally. CARDIOVASCULAR: S1, S2 without noted murmur, rub, or gallop. ABDOMEN: Rounded, soft, nontender, and nondistended. Bowel sounds are positive in all 4 quadrants. No palpable mass. No rebound or guarding appreciated. EXTREMITIES: Warm and dry with fair turgor. Diminished pulses at the dorsalis pedis bilaterally. Right greater than left foot edema with dorsum of the foot with pitting edema. Right second toe with edema and maceration at the distal nail and distal phalanx. Mild tenderness to palpation. No plantar ulcers noted. NEUROLOGIC: Cranial nerves 3 through 12 grossly intact. Mild facial asymmetry, chronic. Not observed ambulatory during this exam. PERTINENT LABORATORY AND X-RAY FINDINGS: Sodium 138, potassium 3.9, chloride 101, CO2 of 29, BUN 22, creatinine 1.40, estimated GFR 60, glucose 96. Lactic acid level 1.1, calcium 9.6. LFTs within normal limits. CRP 0.50. CBC showed a white blood cell count of 6.0, hemoglobin 14, hematocrit 42, MCV 99, platelet count 189 with 45% neutrophils. ESR 38. PT 12.0, INR 0.9, PTT 25.3. Portable chest x-ray dated 12/17/2019, showed no acute cardiopulmonary process. Right foot radiographs dated 12/17/2019, including three views showed mild tuft irregularity and soft tissue edema of the distal phalanx of the second toe. Age indeterminate chronic/subacute fracture at the base of the great toe proximal phalanx. ASSESSMENT AND PLAN: 1. Right foot diabetic toe ulceration. The patient will be admitted to the medical floor. We will continue IV antibiotic therapy including vancomycin 1 g IV q.12 hours with additional Rocephin 2 g IV daily. Wound care consult for local care. Consult General Surgery Service for any further recommendations and consideration for surgical intervention. Check arterial Doppler studies of bilateral lower extremities to assess vascular competence. 2. Diabetes mellitus type 2 with chronic kidney disease and peripheral neuropathy. Insulin sliding scale for reflexive coverage. Resume home insulin regimen. Serial Accu-Cheks before meals and at bedtime. Start gabapentin 600 mg p.o. t.i.d. 3. Chronic kidney disease, stage 2. Avoid nephrotoxic agents and limit contrast exposure. IV fluids with normal saline at 75 mL/h. Repeat creatinine in the a.m. 4. Hypertension, labile. Hydralazine and metoprolol IV as needed for systolic greater than or equal to 170. Resume home antihypertensive regimen and monitor clinical response. 5. Prophylaxis. SCDs held. Lovenox 30 mg subcutaneously daily. Pepcid 20 mg p.o. b.i.d. 6. Code status is full. Surrogate medical decision maker is [place] [facility]. Job ID: [id number]
[2019-12-17] MEDS: NPH, Human Insulin Isophane 300 UNIT/3 ML VIAL SC SCH (22:14)
[2019-12-17] MEDS: Gabapentin 300 MG CAP PO SCH (22:16)
[2019-12-17] MEDS: Metoprolol Tartrate 25 MG TAB PO SCH (22:16)
[2019-12-17] MEDS: Minoxidil 2.5 MG TAB PO SCH (22:16)
[2019-12-17] MEDS: Atorvastatin Calcium 40 MG TAB PO SCH (22:16)
[2019-12-17] MEDS: Timolol 0.5% Ophth Soln 5 ml Bottle EA EYE SCH (22:54)
[2019-12-18] MEDS ORDERED: Vancomycin 1 GM in Premix Bag 1 BAG IVPB SCH (03:00)
[2019-12-18 06:25] LABS: ALT (SGPT) 28 U/L (8-55); AST (SGOT) 20 U/L (5-34); Albumin 3.3 g/dL (3.4-4.8); Alkaline Phosphatase 77 U/L (40-110); Anion Gap 10 mmol/L (10-20); BUN (Urea Nitrogen) 20 mg/dL (8.4-25.7); Bilirubin, Total 0.5 mg/dL (0.2-1.2); Calc. Creatinine Clearance 64 mL/min (70-130); Calcium 8.9 mg/dL (7.8-10.44); Carbon Dioxide 26 mmol/L (23-31); Cardiac Risk 2.6 (Less than 4.5); Chloride 103 mmol/L (98-107); Cholesterol 114 mg/dl (< 200 Desired); Estimated GFR-MDRD 69; Globulin 3.5 g/dL (2.4-3.5); Glucose 181 mg/dL (83-110); HDL Cholesterol 44 mg/dL (>60 Neg Risk); LDL Cholesterol, Calculated 61 mg/dL; Protein, Total 6.8 g/dL (5.8-8.1); Sodium 135 mmol/L (136-145); Triglycerides 47 mg/dL (Less than 150)
[2019-12-18 06:26] LABS: Band 1 % (5-11); Eosinophils 2 % (0-10); Hemoglobin 13.6 g/dL (14.0-18.0); Hypochromia SLIGHT = 6-15 cells (100X) (0-5/hpf); Lymphocytes 11 % (21-51); MDiff Complete? YES; Mean Corpuscular HGB CONC 34.1 g/dL (32.0-36.0); Mean Corpuscular Hemoglobin 32.9 pg (27.0-31.0); Mean Corpuscular Volume 96.5 fL (78.0-98.0); Mean Platelet Volume 8.1 fL (7.4-10.4); Monocytes 19 % (0-10); Neutrophil 67 % (42-75); Platelet Count 198 thou/uL (130-400); Platelet Morphology Comment Appears Adequate; RBC Distribution Width 12.1 % (11.5-14.5); Red Blood Cell (RBC) Count 4.12 mill/uL (4.70-6.10)
[2019-12-18] MEDS: NPH, Human Insulin Isophane 300 UNIT/3 ML VIAL SC SCH ×2 (07:52→20:21)
[2019-12-18] MEDS: Gabapentin 300 MG CAP PO SCH ×3 (07:52→20:21)
[2019-12-18] MEDS: Enoxaparin Sodium 30 MG/0.3 ML SYRINGE SC SCH (07:53)
[2019-12-18] MEDS: Metoprolol Tartrate 25 MG TAB PO SCH ×2 (07:53→20:22)
[2019-12-18] MEDS: Amlodipine 10 MG TAB PO SCH (07:53)
[2019-12-18] MEDS: Sodium Chloride 0.9% 1,000 ML IV SCH ×2 (07:59→12:35)
--- NOTE | 2019-12-18 08:41 | ULT ---
Ultrasound Doppler duplex arterial right lower extremity: DATE: 12/18/2019 HISTORY: 74-year-old male with diabetic ulcer of the right toe. Peripheral artery disease. TECHNIQUE: Grayscale, color-flow, and spectral analysis, of major arteries of right lower extremity. FINDINGS: There is moderate atheromatous plaque visualized throughout all interrogated arteries. Highest peak systolic velocities in centimeters per second, followed by pulse Doppler waveforms: Common femoral: 140, triphasic Superficial femoral, proximal: 100, triphasic Superficial femoral, mid: 100, triphasic Superficial femoral, distal: 305, monophasic Profunda femoral: 175, biphasic Popliteal: 90, monophasic Posterior tibial: 35, monophasic Anterior tibial: 95, monophasic Dorsalis pedis: 30, monophasic. IMPRESSION: Atherosclerosis throughout all interrogated arteries, and evidence for high-grade arterial occlusive disease.
[2019-12-18] MEDS ORDERED: Prevnar 13-Val Conj/PF 0.5 ML SYRINGE IM ONE (09:00)
--- NOTE | 2019-12-18 12:00 | PDOC.HOSPP ---
- Subjective Encounter Date: 12/18/19 Encounter Time: 11:30 Subjective: Patient seen and examined for osteomyelitis. No fever or chills. Pain controlled. No new complaints. No overnight events - Objective Vital Signs & Weight: Vital Signs (12 hours) Temp Pulse Resp BP Pulse Ox 12/18/19 08:00 97 12/18/19 07:53 66 12/18/19 04:00 98.4 F 66 18 140/79 96 12/18/19 00:00 99.2 F 96 17 157/77 H 98 Weight Weight 189 lb 6.033 oz I&O: 12/17/19 12/18/19 12/19/19 06:59 06:59 06:59 Intake Total 360 Output Total 500 Balance -500 360 Result Diagrams: 12/18/19 05:32 12/18/19 05:32 Additional Labs: Accuchecks 12/18/19 12/18/19 12/17/19 11:17 05:21 22:14 POC Glucose 176 H 164 H 341 H Radiology Reviewed by me: Yes (CXR - no infiltrate) Hospitalist ROS - Review of Systems Cardiovascular: denies: chest pain, palpitations, orthopnea, paroxysmal noc. dyspnea, edema, light headedness, other Gastrointestinal: denies: nausea, vomiting, abdominal pain, diarrhea, constipation, melena, hematochezia, other - Medication Medications: Active Medications Generic Name Dose Route Start Last Admin Trade Name Freq PRN Reason Stop Dose Admin Amlodipine Besylate 10 mg 12/18/19 09:00 12/18/19 07:53 Norvasc PO 10 mg DAILY FIDEL Administration Atorvastatin Calcium 80 mg 12/17/19 21:00 12/17/19 22:16 Lipitor PO 80 mg HS FIDEL Administration Enoxaparin Sodium 30 mg 12/18/19 09:00 12/18/19 07:53 Lovenox SC 30 mg 0900 FIDEL Administration Gabapentin 600 mg 12/17/19 21:00 12/18/19 07:52 Neurontin PO 600 mg TID FIDEL Administration Ceftriaxone Sodium 2 gm/ 100 mls @ 200 mls/hr 12/17/19 17:00 12/17/19 19:19 Sodium Chloride IVPB 100 mls Q24HR FIDEL Administration Vancomycin HCl 1 gm/ Device 200 mls @ 200 mls/hr 12/18/19 03:00 12/18/19 03: 25 IVPB 200 mls 0300,1500 FIDEL Administration Insulin Human Lispro 0 units 12/17/19 16:35 12/17/19 22:15 Humalog SC 4 unit .BEDTIME SLIDING SC PRN Administration Bedtime [place] Scale Insulin Human NPH 15 unit 12/17/19 21:00 12/18/19 07:52 Humulin N SC 15 unit BID FIDEL Administration Metoprolol Tartrate 25 mg 12/17/19 21:00 12/18/19 07:53 Lopressor PO 25 mg Q12HR FIDEL Administration Minoxidil 7.5 mg 12/17/19 21:00 12/17/19 22:16 Minoxidil PO 7.5 mg HS FIDEL Administration Timolol Maleate 1 drop 12/17/19 21:00 12/17/19 22:54 Timoptic 0.5% Ophth Soln EA EYE Not Given BID FIDEL - Exam General Appearance: NAD Heart: RRR, no gallops, no rubs, normal peripheral pulses Respiratory: no wheezes, no rales, no ronchi, normal chest expansion Gastrointestinal: soft, non-tender, non-distended, normal bowel sounds Extremities: no cyanosis Neurological: no focal deficits Psychiatric: normal affect, A&O x 3 Hosp A/P - Plan DVT proph w/lovenox Diabetic foot infection/Toe osteomyelitis DM2 CKD 3 HTN PVD Hyponatremia CAD Chronic Hep C PLAN: Await arterial doppler Cont IV Vancomycin/Ceftriaxone Monitor Vancomycin level Reduce IVF to 50 ml/hr Add ASA Cont NPH with sliding scale Await Dr Espana's input AM labs Cont other meds Confirm home meds
[2019-12-18] MEDS ORDERED: Aspirin 81 mg Enteric Coated Tablet PO SCH (12:15)
[2019-12-18] MEDS: Timolol 0.5% Ophth Soln 5 ml Bottle EA EYE SCH ×2 (12:34→20:15)
--- NOTE | 2019-12-18 14:25 | CON ---
DATE OF CONSULTATION: HISTORY OF PRESENT ILLNESS: Yosi Cervantes is a 74-year-old black male, incarcerated for 22 years, brought here by halfway guards in [facility] and evaluated in the emergency room, noted to have right second toe complaints. The patient states he cleaned a dirty bathroom and got his foot wet, otherwise does not know of any precipitating event leading to this. He is noted to have some purulent drainage from the right second toe, but this was not cultured. X-rays of the right foot revealed some mild tuft irregular soft tissue swelling of the distal phalanx of the second toe and age indeterminate fracture base of the great toe proximal phalanx, although clinically this is not bothersome. On exam, the patient has palpable femoral and popliteal pulses and dopplerable only posterior tibial pulse, non-dopplerable dorsalis pedis pulse. His swelling of the right second toe with purulent drainage from the dorsal aspect. The patient has some purulent drainage. ALLERGIES: PENICILLIN. SOCIAL HISTORY: Tobacco, none. Alcohol, none. MEDICATIONS: In halfway, 1. Minoxidil. 2. Metoprolol. 3. Insulin. 4. Amlodipine. 5. Metformin. 6. Lisinopril/hydrochlorothiazide. 7. Plavix. 8. Aspirin. PAST SURGICAL HISTORY: Noncontributory. PAST MEDICAL HISTORY: Diabetes mellitus, hypertension, elevated cholesterol. Coronary disease, status post 2014 myocardial infarction, stents in [place]. Stroke, recently May 2019, leaving him with left arm weakness and left leg weakness and speech disturbance. 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 REVIEW OF SYSTEMS: Ten-point noncontributory. PHYSICAL EXAMINATION: VITAL SIGNS: Height 5 foot 9 inches, 189 pounds, 28 BMI. HEAD, EARS, EYES, NOSE, AND THROAT: Unremarkable. LUNGS: Clear to auscultation. CARDIAC: Regular rate and rhythm without murmur or gallop. ABDOMEN: Soft, nontender. Palpable femoral popliteal pulses bilaterally. Nonpalpable pedal pulses. Dopplerable only posterior tibial pulses of both feet. Non-dopplerable dorsalis pedis pulses of both feet. Right second toe swelling, distal third with purulent drainage over the dorsum. It is painful. LABORATORY DATA: White count 6, hemoglobin 13. Basic metabolic profile normal. BUN and creatinine are normal. Glucose is 181 to 320. Hemoglobin A1c not measured. ASSESSMENT AND PLAN: 1. Diabetic infection, right second toe with the radiological subtle findings and a clinical appearance. I would recommend amputation of the right second toe through the mid phalanx. Although he has PAD, I think this will heal. There is always a chance it may not. If it does not heal well or look good at operation, then consideration for Vascular evaluation could be given. More likely, this is traumatic. 2. Diabetes mellitus. 3. Hypertension. 4. Coronary artery disease. Job ID: [id number]
[2019-12-18] MEDS ORDERED: Midazolam HCl 2 mg/2 ml Vial ONE (14:38)
[2019-12-18] MEDS ORDERED: Fentanyl 100 MCG/2 ML VIAL ONE (14:38)
[2019-12-18] MEDS ORDERED: Bupivacaine 0.25% HCL 30 ML VIAL ONE (14:39)
[2019-12-18] MEDS ORDERED: traMADol HCl 50 MG TAB PO PRN ×2 (15:19)
[2019-12-18] MEDS: cefTRIAXone\\ROCEPHIN 2 GM in Sodium Chloride 0.9% 100 ML IVPB SCH (16:40)
[2019-12-18] MEDS ORDERED: Vancomycin HCl 1.75 GM in Sodium Chloride 0.9% 500 ML IVPB SCH (17:00)
[2019-12-18] MEDS: Atorvastatin Calcium 40 MG TAB PO SCH (20:22)
[2019-12-18] MEDS: Minoxidil 2.5 MG TAB PO SCH (20:22)
[2019-12-18] MEDS: Senokot S 8.6-50 MG TAB PO SCH (20:22)
[2019-12-18] MEDS ORDERED: Famotidine 20 MG TAB PO SCH (21:00)
--- NOTE | 2019-12-19 04:53 | OP ---
DATE OF PROCEDURE: 12/18/2019 PREOPERATIVE DIAGNOSES: Diabetic infection, osteomyelitis, right second toe distal phalanx. POSTOPERATIVE DIAGNOSES: Diabetic infection, osteomyelitis, right second toe distal phalanx. PROCEDURE PERFORMED: Amputation of right second toe through the proximal phalanx, primary closure. ANESTHESIA: IV sedation; block, regional. DESCRIPTION OF PROCEDURE: The patient was taken to the operating room, where under regional anesthesia and IV sedation, right lower extremity was prepared with ChloraPrep and draped in routine fashion. An incision was made for racquet incision amputating the right second toe through the proximal phalanx with a fishmouth incision dividing the bone with the bone cutters and resecting it proximally with a rongeur and dividing connective tissue, there was good bleeding. Wound was irrigated thoroughly. Subcutaneous tissue was approximated with 4-0 Monocryl, skin with 4-0 Prolene interrupted. Sterile dressing applied. ADDENDUM: The patient's dressing should be removed in 48 to 72 hours. He can then wash the wound daily with soap and water and apply antibiotic ointment and Telfa. The sutures should be removed in 2 to 3 weeks. Weight bear as tolerated. Job ID: [id number]
[2019-12-19 06:03] LABS: #Basophils 0.1 thou/uL (0.0-0.2); #Eosinphils 0.2 thou/uL (0.0-0.7); #Lymphocytes 1.7 thou/uL (1.20-3.40); #Monocytes 1.1 thou/uL (0.11-0.59); #Neutrophils 4.2 thou/uL (1.40-6.50); %Basophils 1.3 % (0.0-1.0); %Eosinophils 2.7 % (0.0-10.0); %Lymphocytes 22.9 % (21.0-51.0); %Monocytes 14.7 % (0.0-10.0); %Neutrophils 58.4 % (42.0-75.0); Hemoglobin 14.2 g/dL (14.0-18.0); Mean Corpuscular HGB CONC 33.3 g/dL (32.0-36.0); Mean Corpuscular Hemoglobin 32.8 pg (27.0-31.0); Mean Corpuscular Volume 98.4 fL (78.0-98.0); Mean Platelet Volume 8.1 fL (7.4-10.4); Platelet Count 195 thou/uL (130-400); Red Blood Cell (RBC) Count 4.33 mill/uL (4.70-6.10); White Blood Cell (WBC) Count 7.3 thou/uL (4.8-10.8)
[2019-12-19 06:21] LABS: Anion Gap 12 mmol/L (10-20); BUN (Urea Nitrogen) 15 mg/dL (8.4-25.7); Calc. Creatinine Clearance 71 mL/min (70-130); Calcium 8.8 mg/dL (7.8-10.44); Carbon Dioxide 23 mmol/L (23-31); Chloride 104 mmol/L (98-107); Estimated GFR-MDRD 78; Glucose 148 mg/dL (83-110); Potassium 4.7 mmol/L (3.5-5.1); Sodium 134 mmol/L (136-145)
[2019-12-19] MEDS: Gabapentin 300 MG CAP PO SCH (08:21)
[2019-12-19] MEDS: Amlodipine 10 MG TAB PO SCH (08:21)
[2019-12-19] MEDS: Senokot S 8.6-50 MG TAB PO SCH (08:22)
[2019-12-19] MEDS: Metoprolol Tartrate 25 MG TAB PO SCH (08:22)
[2019-12-19] MEDS: Enoxaparin Sodium 30 MG/0.3 ML SYRINGE SC SCH (08:22)
[2019-12-19] MEDS: Timolol 0.5% Ophth Soln 5 ml Bottle EA EYE SCH (08:22)
[2019-12-19 08:27] VITALS: BP 135/75
[2019-12-19 08:28] VITALS: TEMP 99.7
[2019-12-19] MEDS ORDERED: Saccharomyces boulardii 250 MG CAP PO SCH (09:00)
[2019-12-19] MEDS ORDERED: Aspirin 81 mg Enteric Coated Tablet PO SCH (09:00)
[2019-12-19] MEDS: Sodium Chloride 0.9% 1,000 ML IV SCH (09:42)
--- NOTE | 2019-12-19 10:19 | DIS ---
DATE OF ADMISSION: 12/17/2019 DATE OF DISCHARGE: 12/19/2019 DISCHARGE DISPOSITION: The patient is an inmate. DISCHARGE MEDICATIONS: 1. Bactrim one tablet b.i.d. for 1 week. 2. Ciprofloxacin one tablet b.i.d. for 1 week. All other home medications were left unchanged. ACTIVITY: Weightbearing, as tolerated. FOLLOWUP: The patient was advised to follow up with primary care physician at the unit. Cardiovascular surgeon followup as outpatient is recommended due to peripheral vascular disease. Primary care physician advised to follow. Repeat basic metabolic profile after 1 week is recommended. ALLERGIES: THE PATIENT IS ALLERGIC TO PENICILLIN. BRIEF HOSPITAL COURSE: The patient is a 74-year-old male, presented to the emergency room with right foot pain. His workup was consistent with diabetic foot infection along with osteomyelitis of the right second toe distal phalanx. He was monitored on the medical floor. He was started on empiric antibiotics. He underwent amputation of the right second toe through the proximal phalanx with a primary closure. He has been educated on wound care. He has been cleared by General Surgery for discharge. SIGNIFICANT LABORATORY DATA: 1. WBC on admission 6.0. 2. Sodium 134. Creatinine on admission was 1.4, at discharge was 1.1. 3. Lactic acid was 1.1. 4. CRP was less than 0.5. DIAGNOSTIC TESTS: Cardiovascular surgeon followup as outpatient is recommended due to peripheral vascular disease. Primary care physician advised to follow. FINAL DIAGNOSES: 1. Diabetic foot infection/right second toe osteomyelitis, status post amputation. 2. Diabetes mellitus, type 2. 3. Peripheral vascular disease. 4. Chronic kidney disease, stage 3. 5. Hypertension. 6. Hyponatremia. 7. Chronic hepatitis C. 8. Coronary artery disease. TIME SPENT: Time coordinating the discharge of this patient was 37 minutes. Job ID: [id number]
[2019-12-19] MEDS ORDERED: Ciprofloxacin 500 MG TAB PO SCH ×2 (11:15→20:00)
[2019-12-19] MEDS ORDERED: Sulfameth/Trimethoprim DS 800-160mg TAB PO SCH ×2 (11:15→21:00)
--- NOTE | 2019-12-19 12:41 | PRG ---
DATE OF SERVICE: 12/19/2019 Yosi Cervantes is doing well after amputation of the right second toe through the proximal phalanx with primary closure. Cultures were not obtained on admission of this wound. He had been on antibiotics, so I did not obtain this in the operating room. The toe was amputated and closed primarily after irrigation. We will order orthotic shoe to use. He can weightbear as tolerated. We will discontinue intravenous antibiotics. He can be out of bed and ambulate, weightbear as tolerated for necessary activities. I would recommend removing the dressing Friday, and at that time begin washing the wound daily with soap and water in the shower, apply antibiotic ointment and Band-Aid. He should have suture removal in about 2 weeks. I will see him as needed this hospitalization. Please call if necessary. I will be glad to see my office in 2 to 3 weeks, but more than likely [facility] status. He will be followed up at the [facility]. Job ID: [id number]
[2019-12-19] MEDS: NPH, Human Insulin Isophane 300 UNIT/3 ML VIAL SC SCH (12:56)
== END 2019-12-19 13:35 | DRG 617 ==
LOC: ERS 11:19 → T4-B 15:59
PROVIDERS: ADMIT Family Medicine; ATTEND Family Medicine
PROC: 0Y6R0Z1 Detachment at Right 2nd Toe, High, Open Approach (ICD-10-PCS; principal; 2019-12-17)
DX: E11.69 Type 2 diabetes mellitus with other specified complication (principal); M86.171 Other acute osteomyelitis, right ankle and foot; E87.1 Hypo-osmolality and hyponatremia; I69.354 Hemiplegia and hemiparesis following cerebral infarction affecting left non-dominant side; E11.42 Type 2 diabetes mellitus with diabetic polyneuropathy; E11.22 Type 2 diabetes mellitus with diabetic chronic kidney disease; I25.10 Atherosclerotic heart disease of native coronary artery without angina pectoris; N18.3 Chronic kidney disease, stage 3 (moderate); I12.9 Hypertensive chronic kidney disease with stage 1 through stage 4 chronic kidney disease, or unspecified chronic kidney disease; E78.5 Hyperlipidemia, unspecified; B18.2 Chronic viral hepatitis C; E11.621 Type 2 diabetes mellitus with foot ulcer; L97.519 Non-pressure chronic ulcer of other part of right foot with unspecified severity; E78.00 Pure hypercholesterolemia, unspecified; Z95.5 Presence of coronary angioplasty implant and graft; I69.392 Facial weakness following cerebral infarction; Z79.4 Long term (current) use of insulin; Z79.01 Long term (current) use of anticoagulants; Z79.82 Long term (current) use of aspirin; Z79.899 Other long term (current) drug therapy; Z88.0 Allergy status to penicillin
CPT/HCPCS: 36415; 36416; 71045; 80048; 80053; 80061; 83605; 85007; 85025; 85027; 85610; 85652; 85730; 86140; 86850; 86900; 86901; 88305; 88311; 93923; J0360; J0696; J1650; J1815; J2250; J2270; J2543; J3010; J3370; J3490; J7030; S0020

== ENCOUNTER 2020-02-07 15:36 | Emergency (ER) | payer OTHER ==
[~2020-02-07 15:36] MED LIST: Iopamidol-370 76% 500 ML 1 ML ONE
[2020-02-07] MEDS ORDERED: Vancomycin 1 GM/200 ML BAG ONE (16:54)
[2020-02-07 17:22] LABS: #Basophils 0.1 thou/uL (0.0-0.2); #Eosinphils 0.1 thou/uL (0.0-0.7); #Lymphocytes 1.8 thou/uL (1.20-3.40); #Monocytes 1.1 thou/uL (0.11-0.59); #Neutrophils 6.2 thou/uL (1.40-6.50); %Basophils 0.6 % (0.0-1.0); %Eosinophils 1.3 % (0.0-10.0); %Lymphocytes 19.3 % (21.0-51.0); %Monocytes 11.5 % (0.0-10.0); %Neutrophils 67.3 % (42.0-75.0); Hemoglobin 13.8 g/dL (14.0-18.0); Mean Corpuscular HGB CONC 33.3 g/dL (32.0-36.0); Mean Corpuscular Hemoglobin 31.7 pg (27.0-31.0); Platelet Count 193 thou/uL (130-400); RBC Distribution Width 12.5 % (11.5-14.5); Red Blood Cell (RBC) Count 4.37 mill/uL (4.70-6.10); White Blood Cell (WBC) Count 9.2 thou/uL (4.8-10.8)
[2020-02-07 17:40] LABS: ALT (SGPT) 42 U/L (8-55); AST (SGOT) 34 U/L (5-34); Albumin 3.7 g/dL (3.4-4.8); Alkaline Phosphatase 111 U/L (40-110); Anion Gap 11 mmol/L (10-20); BUN (Urea Nitrogen) 20 mg/dL (8.4-25.7); Bilirubin, Total 0.6 mg/dL (0.2-1.2); Calc. Creatinine Clearance 0 mL/min (70-130); Calcium 9.3 mg/dL (7.8-10.44); Carbon Dioxide 25 mmol/L (23-31); Chloride 102 mmol/L (98-107); Estimated GFR-MDRD 60; Globulin 4.1 g/dL (2.4-3.5); Glucose 191 mg/dL (83-110); Potassium 4.2 mmol/L (3.5-5.1); Protein, Total 7.8 g/dL (5.8-8.1); Sodium 134 mmol/L (136-145)
[2020-02-07] MEDS ORDERED: Ondansetron PF 4 MG/2 ML Vial ONE (18:34)
[2020-02-07] MEDS ORDERED: Morphine 4 MG/ML VIAL ONE ×2 (18:34→20:55)
--- NOTE | 2020-02-07 20:06 | CT ---
CT OF PELVIS PERFORMED WITH CONTRAST ENHANCEMENT: History: Scrotal pain and swelling. FINDINGS: There is partial visualization of a hypodensity involving the lower pole of the left kidney. It measu res 6.6 cm and is most compatible with a cyst. Atherosclerotic changes of the aortic and pelvic vesse ls. Prostate is enlarged. There is a fluid collection within the scrotum. There appears to have three separate areas of hypoden sity. I assume that two of these areas are related to the testicles. Further evaluation of these find ings with ultrasound may be beneficial. No air is seen within the soft tissues. IMPRESSION: Three hypodensities within the scrotal sac. These may represent some type of epididymal cyst or sperm atocele or possibly related to hydrocele. Ultrasound would be helpful in better assessment. POS: [facility]
--- NOTE | 2020-02-07 20:25 | ULT ---
TESTICULAR ULTRASOUND: History: Scrotal pain and swelling. FINDINGS: Real-time imaging of the right and left testes were performed. The right testicle measures 4.8 cm, th e left testicle 4.8 cm in length. Tiny 3-4 mm testicular cysts are seen. Lateral to the left testicle is a complex hypoechoic area. It measures 3.7 cm in size. It does not sh ow any definitive blood flow in this region although there is considerable artifact related to interf erence in the ER room. There appears to be scrotal wall edema. I am not certain if this complex colle ction is related to the scrotum or scrotal wall. DOPPLER EVALUATION WITH SPECTRAL ANALYSIS: Normal flow is show to the testes and epididymal regions. IMPRESSION: 1. Complex appearing collection lateral to the left testicle measuring 3.7 cm in length. This may rep resent an abscess collection. It could possibly be within the scrotal wall. Clinical correlation is r ecommended. POS: [facility]
[2020-02-07] MEDS ORDERED: Lidocaine 1% (PF) 30 ML VIAL ONE (20:54)
== END 2020-02-07 23:55 ==
LOC: EEVIPCON 15:36 → ERS 15:36
DX: N49.2 Inflammatory disorders of scrotum (principal); I25.10 Atherosclerotic heart disease of native coronary artery without angina pectoris; E11.22 Type 2 diabetes mellitus with diabetic chronic kidney disease; I12.9 Hypertensive chronic kidney disease with stage 1 through stage 4 chronic kidney disease, or unspecified chronic kidney disease; N18.9 Chronic kidney disease, unspecified; E11.40 Type 2 diabetes mellitus with diabetic neuropathy, unspecified; F32.9 Major depressive disorder, single episode, unspecified; Z79.02 Long term (current) use of antithrombotics/antiplatelets; Z79.899 Other long term (current) drug therapy; Z79.4 Long term (current) use of insulin
CPT/HCPCS: 36415; 54700; 72193; 76870; 80053; 83605; 85025; 87070; 87077; 87186; 87205; 93976; 96374; 96375; 96376; J2001; J2270; J2405; J3370; Q9967

== ENCOUNTER 2020-05-05 11:19 | Emergency (ER) | payer OTHER ==
[2020-05-05 12:51] LABS: #Eosinphils 0.1 thou/uL (0.0-0.7); #Lymphocytes 1.5 thou/uL (1.20-3.40); #Monocytes 0.4 thou/uL (0.11-0.59); #Neutrophils 2.3 thou/uL (1.40-6.50); %Eosinophils 2.3 % (0.0-10.0); %Lymphocytes 34.9 % (21.0-51.0); %Monocytes 9.4 % (0.0-10.0); %Neutrophils 53.3 % (42.0-75.0); Hemoglobin 14.7 g/dL (14.0-18.0); Mean Corpuscular HGB CONC 33.2 g/dL (32.0-36.0); Mean Corpuscular Hemoglobin 32.3 pg (27.0-31.0); Mean Corpuscular Volume 97.3 fL (78.0-98.0); Mean Platelet Volume 8.3 fL (7.4-10.4); Platelet Count 201 thou/uL (130-400); RBC Distribution Width 12.8 % (11.5-14.5); Red Blood Cell (RBC) Count 4.56 mill/uL (4.70-6.10); White Blood Cell (WBC) Count 4.3 thou/uL (4.8-10.8)
--- NOTE | 2020-05-05 12:58 | RAD ---
Exam: Chest one view HISTORY:Chest pain. Comparison: 12/17/2019 FINDINGS: Cardiac silhouette: Normal Aorta: Unremarkable Pulmonary vessels: Normal Costophrenic angles: Clear LUNGS: No masses or consolidation. Pneumothorax: None Osseous abnormalities: None IMPRESSION: No acute cardiopulmonary process.
--- NOTE | 2020-05-05 13:14 | CT ---
Head CT without contrast 05/05/2020: COMPARISON: 06/03/2019 HISTORY: Progressive altered mental status and weakness over one year TECHNIQUE: Axial CT imaging at 5 mm intervals from vertex through skull base without contrast FINDINGS: The visualized paranasal sinuses and mastoid air cells are well-aerated. No displaced nabeel rial fracture. No intracranial hemorrhage, midline shift, mass effect, or ventricular enlargement. There is atherosclerotic calcification involving the distal vertebral arteries and bilateral cavernou s carotid arteries. Multifocal periventricular, deep, and subcortical white matter hypodensity noted, evidence of small v essel disease, similar when compared to the prior examination. IMPRESSION: Stable head CT. No intracranial hemorrhage.
[2020-05-05 13:21] LABS: ALT (SGPT) 39 U/L (8-55); AST (SGOT) 34 U/L (5-34); Albumin 3.6 g/dL (3.4-4.8); Alkaline Phosphatase 61 U/L (40-110); Anion Gap 13 mmol/L (10-20); BUN (Urea Nitrogen) 26 mg/dL (8.4-25.7); Bilirubin, Total 0.7 mg/dL (0.2-1.2); Calc. Creatinine Clearance 0 mL/min (70-130); Calcium 9.1 mg/dL (7.8-10.44); Carbon Dioxide 27 mmol/L (23-31); Chloride 101 mmol/L (98-107); Estimated GFR-MDRD 68; Globulin 3.5 g/dL (2.4-3.5); Glucose 171 mg/dL (83-110); Potassium 4.5 mmol/L (3.5-5.1); Protein, Total 7.1 g/dL (5.8-8.1); Sodium 136 mmol/L (136-145)
[2020-05-05] MEDS ORDERED: hydrALAZINE 10 MG TAB PO SCH (14:00)
[2020-05-05 14:10] LABS: Bacteria/HPF None Seen HPF (None Seen); Bilirubin Negative (Negative); Blood, Urine Negative (Negative); Clarity Clear (Clear); Glucose, Urine (Dipstick) 50 mg/dL (Negative); Ketone, Urine Negative (Negative); Leukocyte Negative Leu/uL (Negative); Mucous/LPF Rare LPF (<2+); Nitrite Negative (Negative); Protein, Urine (Dipstick) 50 mg/dL (Neg-Trace); RBC/HPF 0-3 HPF (0-3); Specific Gravity, Urine 1.017 (1.002-1.036); Squamous Epithelial 0-3 HPF (0-3); Urobilinogen Normal mg/dL (Less than 2); WBC/HPF 0-3 HPF (0-3); pH, Urine 6.5 (5.0-9.0)
[2020-05-05 14:15] LABS: Amphetamine Not Detected (NotDetected); Barbiturates Screen Not Detected (NotDetected); Benzodiazepine Screen Not Detected (NotDetected); Cocaine Metabolite Screen Not Detected (NotDetected); Medtox Control Line Valid? VALID (VALID); Medtox Reader # READER 1; Methadone Not Detected (NotDetected); Methamphetamine Not Detected (NotDetected); Opiate Screen Not Detected (NotDetected); Oxycodone Screen Not Detected (NotDetected); Phencyclidine (PCP) Not Detected (NotDetected); THC/Cannabinoid Screen Not Detected (NotDetected); Tricyclic Screen Not Detected (NotDetected)
== END 2020-05-05 14:57 | disposition home or self-care (01) ==
LOC: ERS 11:19 → EEVIPCON 11:19 → ERS 14:57
DX: R53.1 Weakness (principal); R41.82 Altered mental status, unspecified; E11.9 Type 2 diabetes mellitus without complications; I10 Essential (primary) hypertension; F32.9 Major depressive disorder, single episode, unspecified; Z86.73 Personal history of transient ischemic attack (TIA), and cerebral infarction without residual deficits; Z79.4 Long term (current) use of insulin; Z79.899 Other long term (current) drug therapy
CPT/HCPCS: 36415; 70450; 71045; 80053; 80306; 81003; 81015; 82140; 84484; 85025; 93005

== ENCOUNTER 2020-12-23 02:13 | Emergency (ER) | payer OTHER ==
[2020-12-23 03:39] LABS: #Eosinphils 0.1 thou/uL (0.0-0.7); #Lymphocytes 1.8 thou/uL (1.20-3.40); #Monocytes 0.9 thou/uL (0.11-0.59); #Neutrophils 5.4 thou/uL (1.40-6.50); %Basophils 0.4 % (0.0-1.0); %Eosinophils 0.9 % (0.0-10.0); %Lymphocytes 21.8 % (21.0-51.0); %Monocytes 11.4 % (0.0-10.0); %Neutrophils 65.6 % (42.0-75.0); Hemoglobin 14.5 g/dL (14.0-18.0); Mean Corpuscular HGB CONC 32.5 g/dL (32.0-36.0); Mean Corpuscular Hemoglobin 31.2 pg (27.0-31.0); Mean Corpuscular Volume 95.8 fL (78.0-98.0); Mean Platelet Volume 7.8 fL (7.4-10.4); Platelet Count 167 thou/uL (130-400); RBC Distribution Width 13.2 % (11.5-14.5); Red Blood Cell (RBC) Count 4.66 mill/uL (4.70-6.10); White Blood Cell (WBC) Count 8.2 thou/uL (4.8-10.8)
[2020-12-23 03:54] LABS: Bacteria/HPF None Seen HPF (None Seen); Bilirubin Negative (Negative); Blood, Urine 1+ (Negative); Clarity Clear (Clear); Glucose, Urine (Dipstick) 100 mg/dL (Negative); Ketone, Urine Negative (Negative); Leukocyte Negative Leu/uL (Negative); Nitrite Negative (Negative); Protein, Urine (Dipstick) 200 mg/dL (Neg-Trace); Specific Gravity, Urine 1.013 (1.002-1.036); Squamous Epithelial 0-3 HPF (0-3); Urobilinogen Normal mg/dL (Less than 2); WBC/HPF 0-3 HPF (0-3); pH, Urine 6.5 (5.0-9.0)
[2020-12-23 04:06] LABS: ALT (SGPT) 22 U/L (8-55); AST (SGOT) 36 U/L (5-34); Albumin 3.6 g/dL (3.4-4.8); Alkaline Phosphatase 81 U/L (40-110); Anion Gap 13 mmol/L (10-20); BUN (Urea Nitrogen) 23 mg/dL (8.4-25.7); Bilirubin, Total 0.6 mg/dL (0.2-1.2); Calc. Creatinine Clearance 0 mL/min (70-130); Calcium 9.6 mg/dL (7.8-10.44); Carbon Dioxide 28 mmol/L (23-31); Chloride 98 mmol/L (98-107); Glucose 345 mg/dL (83-110); Potassium 3.8 mmol/L (3.5-5.1); Protein, Total 7.6 g/dL (5.8-8.1); Sodium 135 mmol/L (136-145)
[2020-12-23 04:22] LABS: CKMB 5.3 ng/mL (0-6.6)
[2020-12-23] MEDS ORDERED: Aspirin 325 MG TAB ONE (04:44)
== END 2020-12-23 12:39 | disposition short-term general hospital (02) ==
LOC: ERS 02:13
DX: R53.1 Weakness (principal); R74.8 Abnormal levels of other serum enzymes; E11.22 Type 2 diabetes mellitus with diabetic chronic kidney disease; E11.40 Type 2 diabetes mellitus with diabetic neuropathy, unspecified; I12.9 Hypertensive chronic kidney disease with stage 1 through stage 4 chronic kidney disease, or unspecified chronic kidney disease; I25.10 Atherosclerotic heart disease of native coronary artery without angina pectoris; Z79.4 Long term (current) use of insulin; Z86.73 Personal history of transient ischemic attack (TIA), and cerebral infarction without residual deficits
CPT/HCPCS: 36415; 36416; 51701; 70450; 71045; 80053; 81003; 81015; 82553; 84484; 85025; 93005; 94760